=== PATIENT | male | born 1955 | race Two or more races ===

== ENCOUNTER → 2017-06-08 | Outpatient (CLI) | payer MEDICARE ==
--- NOTE | 2017-06-08 18:31 | PN ---
PROGRESS NOTE This 61-year-old male patient is coming in for an annual check regarding his obstructive sleep apnea. The patient has severe ALDA with an AHI of 45 and he was treated with a CPAP pressure of 11 cm of water. On and off he is having difficulties utilizing his full-face mask. I noted the patient has been using the CPAP 23 out of 30 days, and this is a based on 1 month's worth of compliancy data. His CPAP use for more than 4 hours is 10 out of 30, which is almost a third. His average CPAP use is around 3.4 hours per night and his AHI while on treatment is down to 3.3. His leak factor is only 2 L/minute. Note that he was having chronic back pain and he was receiving and epidural shots by Pain Management. His pain is better controlled. He wakes up in the middle of the night on and off, mainly due to dryness. I noted that his humidity level is only 2. He is using heated tubing at a temperature of 82 degrees Fahrenheit. PHYSICAL EXAMINATION: BP 114/62, pulse 63, respirations 16, temperature 97.5, saturation 98% on room air. [place] score is 10. BMI 33.2. Weight is 210. Height is 5 feet 6 inches. GENERAL APPEARANCE: Calm, comfortable. HEENT: Short neck. Crowding of posterior pharynx. LUNGS: Diminished breath sounds bilaterally; otherwise clear. Heart sounds are regular rate and rhythm. Normal S1, S2. No S3. No S4. No murmurs. ABDOMEN: Soft, nontender. No organomegaly. EXTREMITIES: No edema. No cyanosis or clubbing. IMPRESSION: 1. Severe symptomatic obstructive sleep apnea with an AHI of 45 with suboptimal compliance at a pressure of 11 cm of water. 2. Chronic back pain. 3. Hyperlipidemia. 4. Hypertension. PLAN: 1. Continue using the Simplus full-face mask, medium size. Refills were given. 2. Increase the humidity up to 4. 3. Drop the temperature of the tubing down to 72 degrees Fahrenheit. 4. Encourage weight loss. The patient has lost 4 pounds since his last visit. The patient seems to be more committed to the use of CPAP, knowing that he has been more symptomatic and sleepy while being off the treatment. 5. We will see him back in a year's time in followup, earlier if needed. His treatment has been successful. He needs to put more hours on the CPAP machine. He was educated about that. MMODL / IJN: [id number] /
== END ==
LOC: SLEEP 15:40
PROVIDERS: ATTEND Internal Medicine Critical Care Medicine
DX: G47.33 Obstructive sleep apnea (adult) (pediatric) (principal); E78.5 Hyperlipidemia, unspecified; I10 Essential (primary) hypertension; M54.9 Dorsalgia, unspecified; G89.29 Other chronic pain

== ENCOUNTER → 2018-07-26 | Outpatient (CLI) | payer MEDICARE ==
--- NOTE | 2018-07-26 19:05 | SFUN ---
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 Still on a pressure of 11 cm of water. His weight is around 210-213 and has been stable. Utilizing a Simplus full-face mask, [place] score around 6. Continues to benefit from the treatment. I checked his compliance data. The patient has been averaging around 5.1 hour of CPAP use per night. Leak is 4 L/minute. He is using a Simplus full face mask. He has hypertension which is well controlled for now. He has also hyperlipidemia treated. He is at baseline AHI was 45. REVIEW OF SYSTEMS: No angina, no palpitations. No shortness of breath. No heartburn. 12-point review of system was done. No other symptoms other than things mentioned above in history of present illness. No parasomnia, no dreaming, no sleep paralysis, no hallucinations, no cataplexy. PHYSICAL EXAMINATION: BP is 107/62, pulse is 59, respirations 16, temperature 98.1, saturation 96% on room air. Weight is 213, height is 5 feet 7 inches, [place] score 6. BMI is 33.3. GENERAL APPEARANCE: Calm, comfortable. Head is atraumatic, normocephalic. NECK: Supple. No JVD. No goiter or neck mass. Mallampati class IV. LUNGS: Clear to auscultation. HEART: Sounds regular rhythm. Normal S1, S2. No S3. No murmurs. ABDOMEN: Soft, nontender. No organomegaly. EXTREMITIES: No edema. No cyanosis or clubbing. IMPRESSION: 1. Symptomatic severe obstructive sleep apnea with an AHI of 45. 2. Hyperlipidemia. 3. Hypertension. 4. Obesity. PLAN: 1. Encourage weight loss. 2. Continue CPAP with a pressure of 11. 3. Switch this patient from a Simplus to an AirFit F20 medium-sized full-face mask. 4. Implement good sleep hygiene measures. 5. See me back in a year's time. MMODL / IJN: [id number] /
== END | disposition home or self-care (01) ==
LOC: SLEEP 13:55
PROVIDERS: ATTEND Internal Medicine Critical Care Medicine
DX: G47.33 Obstructive sleep apnea (adult) (pediatric) (principal); I10 Essential (primary) hypertension; E78.5 Hyperlipidemia, unspecified; E66.9 Obesity, unspecified; Z68.33 Body mass index [BMI] 33.0-33.9, adult; Z99.89 Dependence on other enabling machines and devices

== ENCOUNTER → 2019-07-18 | Outpatient (CLI) | payer MEDICARE ==
--- NOTE | 2019-07-18 17:57 | PN ---
PROGRESS NOTE This is a 63-year-old male patient coming in for an annual check regarding obstructive sleep apnea. The patient has severe ALDA with an AHI of 45 and currently he is on a CPAP pressure of 11 cm of water. I noticed that his compliance has gone down over these past several months, as the patient has been having issues with passing gas and flatus while on CPAP therapy. Nevertheless, I checked his compliance data, and over the past 3 months the patient has used his CPAP around 66 days out of 90 days, averaging around 4 hours per night. AHI is down to 3.9 with a leak of only 2 L/minute. His weight has been stable. He used to weigh around 213 and currently is at 214. He continues to benefit from treatment as long as he uses the CPAP. His [place] Score is 12. REVIEW OF SYSTEMS: Fourteen-point review of systems was done. Positive findings were all mentioned above in the history of present illness. Otherwise no changes. PHYSICAL EXAMINATION: VITAL SIGNS: BP is 127/75, pulse 51, respirations 16, temperature 98.3, saturation 97% on room air. [place] score is 12. BMI 33. Height is 5 feet 7 inches, weight 214. GENERAL APPEARANCE: Calm, comfortable. HEAD: Atraumatic, normocephalic. NECK: Supple. Mallampati class IV. No goiter or neck masses. LUNGS: Diminished; otherwise clear. HEART: Heart sounds are regular rate and rhythm. Normal S1, S2. No S3, S4. No murmurs. ABDOMEN: Soft, nontender. No organomegaly. EXTREMITIES: No edema. No cyanosis or clubbing. NEUROLOGIC: Alert and oriented x3. No focal neurological deficits. PSYCHIATRIC: Negative for anxiety or depression. IMPRESSION: 1. Obstructive sleep apnea, severe; apnea/hypopnea index of 45. Currently on CPAP pressure of 11. 2. Increased flatus related to CPAP therapy. 3. Obesity with a stable body weight. BMI 33. 4. Hypersomnia, improved. PLAN: 1. Drop the CPAP down to 9 cm of water. This will hopefully help with his flatus. 2. Keep the same mask interface. 3. Increase the humidity up to 4. 4. Eliminate RAMP time. 5. Monitor the AHI while on treatment and contact me back if the AHI still goes up. Otherwise, as long as the AHI remains low, below 5, the patient will be kept at a CPAP pressure of 9, and the patient will see me back in 12 months' time in followup. JIE / IJN: [id number] /
== END | disposition home or self-care (01) ==
LOC: SLEEP 13:01
PROVIDERS: ATTEND Internal Medicine Critical Care Medicine
DX: G47.33 Obstructive sleep apnea (adult) (pediatric) (principal); G47.19 Other hypersomnia; E66.9 Obesity, unspecified; Z68.33 Body mass index [BMI] 33.0-33.9, adult

== ENCOUNTER → 2020-07-02 | Outpatient (CLI) | payer MEDICARE ==
--- NOTE | 2020-07-02 16:43 | PN ---
PROGRESS NOTE This patient is 64 coming in for a followup regarding obstructive sleep apnea. He has severe ALDA with an AHI of 45, currently on CPAP pressure of 9 cm of water. The patient is doing extremely well. No complaints. No major hypersomnia or sleepiness during the day. No new onset comorbidities. He is using an Air Fit F20 medium size full-face mask. His pressure is at 9. Based on a 30-day compliance, he has been averaging around 4 hours of CPAP use per night and his AHI while on treatment is down to 4.7. His leak is in order of 0 L/minute. The patient is otherwise doing well. No other complaints otherwise for now. He is more compliant. There are certain times when he stops using his machine and he became more symptomatic and he seems to be much more committed. His weight was around 219 pounds which is probably up by around 6 pounds since his last evaluation. REVIEW OF SYSTEMS: A 14-point review of system was done and the positive findings are mentioned in history of present illness. PHYSICAL EXAMINATION: BP is 120/68, pulse 60, respirations 16, temperature 98.2, saturation 98% on room air. Height is 5, 7, weight is 219 and BMI is 34.2. GENERAL APPEARANCE: Calm, comfortable. HEAD: Atraumatic, normocephalic. NECK: Supple. No JVD. No goiter or neck masses, Mallampati class 4. LUNGS: Clear to auscultation. HEART: Heart sounds are regular rate and rhythm, normal S1, S2. No S3, S4. No murmurs. ABDOMEN: Soft, nontender, no organomegaly. EXTREMITIES: No edema, no cyanosis or clubbing. NEUROLOGIC: He is alert x3. No focal neurological deficits. PSYCHIATRIC: Negative for anxiety or depression. IMPRESSION: 1. ALDA, AHI of 45, currently on CPAP pressure of 9. Treatment is successful. 2. Hypersomnia recovered. 3. Hyperlipidemia. 4. Chronic sinus allergies. 5. Hypertension. PLAN: 1. Continue CPAP therapy at same level of pressure of 9. 2. Encourage weight loss. 3. Implement hygiene measures. 4. Improved number of hours of CPAP use per night and I would expect at least 5-6 hours per night. 5. Keep the same mask interface which is an Air Fit of 20. 6. See me back in a year's time in followup, earlier if needed. MMODL / IJN: [id number] /
== END | disposition home or self-care (01) ==
LOC: SLEEP 12:58
PROVIDERS: ATTEND Internal Medicine Critical Care Medicine
DX: G47.33 Obstructive sleep apnea (adult) (pediatric) (principal); E78.5 Hyperlipidemia, unspecified; I10 Essential (primary) hypertension; J30.9 Allergic rhinitis, unspecified; Z99.89 Dependence on other enabling machines and devices

== ENCOUNTER → 2023-07-26 | Outpatient (CLI) | payer MEDICARE ==
--- NOTE | 2023-07-26 10:54 | XR ---
EXAMINATION TYPE: XR abdomen 1V DATE OF EXAM: 07/26/2023 COMPARISON: NONE HISTORY: Pain TECHNIQUE: One view abdominal series FINDINGS: The osseous structures are intact. The bowel gas pattern is nonspecific. Surgical clips right upper quadrant. Hypertrophic changes in the acetabulum. Hypertrophic degenerative changes in the spine. IMPRESSION: 1. Nonspecific abdomen.
== END | disposition home or self-care (01) ==
LOC: RADXRYALE 09:43
PROVIDERS: ATTEND Family Medicine
DX: K59.00 Constipation, unspecified (principal); R10.84 Generalized abdominal pain
CPT/HCPCS: 74018

== ENCOUNTER 2023-07-30 10:57 | Inpatient (IN) | payer MEDICARE ==
--- NOTE | 2023-07-30 11:18 | ED ---
Fever HPI - General Source: patient, RN notes reviewed <Candace Trotter - Last Filed: 07/30/23 11:17> - History of Present Illness MD Complaint: fever -: week(s) Temperature Source: subjective, oral Associated Symptoms: chills Treatments Prior to Arrival: none <Inocencio Guaman - Last Filed: 08/02/23 21:45> - General Stated Complaint: fever Time Seen by Provider: 07/30/23 11:17 - History of Present Illness Initial Comments: Patient is 67 mL presented ER with chief complaint of a fever. Patient states he was seen for hemorrhoids on Wednesday. Patient denies any chills or night sweats. Patient states he has spiked a fever of 101 and 102. (Candace Trotter) This is a 67-year-old male to the emergency department today DF for evaluation of fever with recent treatment for hemorrhoids. Patient has severe rectal pain with fever 102 going on for a week severe rectal pain worsening. Chills fever (Inocencio Guaman) - Related Data Home Medications Medication Instructions Recorded Confirmed Fluticasone Nasal [place] [Flonase 2 spray EA NOSTRIL DAILY 06/04/16 07/30/23 Nasal [place]] Metoprolol Tartrate [Lopressor] 50 mg PO BID 06/04/16 07/30/23 Omeprazole [PriLOSEC] 40 mg PO DAILY PRN 06/04/16 07/30/23 Acetaminophen Tab [Tylenol Tab] 500 mg PO Q6H PRN 07/30/23 07/30/23 Aspirin EC [Ecotrin Low Dose] 81 mg PO DAILY 07/30/23 07/30/23 Atorvastatin [Lipitor] 20 mg PO DAILY 07/30/23 07/30/23 Celecoxib [CeleBREX] 200 mg PO BID PRN 07/30/23 07/30/23 amLODIPine [Norvasc] 5 mg PO HS 07/30/23 07/30/23 Allergies Allergy/AdvReac Type Severity Reaction Status Date / Time sulfamethoxazole Allergy Rash/Hives Verified 07/30/23 17:29 [From Sulfamethoxazole-Trimethoprim] trimethoprim Allergy Rash/Hives Verified 07/30/23 17:29 [From Sulfamethoxazole-Trimethoprim] Review of Systems ROS Other: All systems not noted in ROS Statement are negative. <Candace Trotter - Last Filed: 07/30/23 11:17> ROS Other: All systems not noted in ROS Statement are negative. <Inocencio Guaman - Last Filed: 08/02/23 21:45> ROS Statement: Those systems with pertinent positive or pertinent negative responses have been documented in the HPI. Past Medical History Past Medical History: Coronary Artery Disease (CAD), GERD/Reflux, Hyperlipidemia, Hypertension, Sleep Apnea/CPAP/BIPAP History of Any Multi-Drug Resistant Organisms: None Reported Past Surgical History: Appendectomy, Orthopedic Surgery Additional Past Surgical History / Comment(s): R & L shoulder surgery in the past. Pain injections to lower back. Past Anesthesia/Blood Transfusion Reactions: No Reported Reaction Past Psychological History: No Psychological Hx Reported Past Alcohol Use History: Occasional Past Drug Use History: None Reported - Past Family History Sister(s) Family Medical History: Cancer Additional Family Medical History / Comment(s): Thyroid Mother Family Medical History: No Reported History Father Family Medical History: Cancer Additional Family Medical History / Comment(s): Prostate <StephenscottCandace - Last Filed: 07/30/23 11:17> General Exam <Candace Trotter - Last Filed: 07/30/23 11:17> General appearance: alert, in no apparent distress, anxious Head exam: Present: atraumatic, normocephalic, normal inspection Eye exam: Present: normal appearance, PERRL, EOMI. Absent: scleral icterus, conjunctival injection, periorbital swelling ENT exam: Present: normal exam, mucous membranes moist Neck exam: Present: normal inspection. Absent: tenderness, meningismus, lymphadenopathy Respiratory exam: Present: normal lung sounds bilaterally. Absent: respiratory distress, wheezes, rales, rhonchi, stridor Cardiovascular Exam: Present: regular rate, normal rhythm, normal heart sounds. Absent: systolic murmur, diastolic murmur, rubs, gallop, clicks GI/Abdominal exam: Present: soft, normal bowel sounds. Absent: distended, tenderness, guarding, rebound, rigid Extremities exam: Present: normal inspection, full ROM, normal capillary refill. Absent: tenderness, pedal edema, joint swelling, calf tenderness Back exam: Present: normal inspection Neurological exam: Present: alert, oriented X3, CN II-XII intact Psychiatric exam: Present: normal affect, normal mood Skin exam: Present: warm, dry, intact, normal color. Absent: rash <Inocencio Guaman - Last Filed: 08/02/23 21:45> - General Exam Comments Initial Comments: Visual Physical Exam Vital signs reviewed General: Well-appearing, nontoxic, no acute distress. Head: Normocephalic, atraumatic Eyes: PERRLA, EOMI ENT: Airway patent Chest: Nonlabored breathing Skin: No visual rash, normal skin tone Neuro: Alert and oriented 3 Musculoskeletal: No gross abnormalities (Candace Trotter) Course <Inocencio Guaman - Last Filed: 08/02/23 21:45> Vital Signs 07/30/23 07/30/23 07/30/23 11:17 14:24 18:49 Temperature 100.2 F H 101.2 F H 98.7 F Pulse Rate 89 92 Respiratory 20 18 Rate Blood Pressure 134/91 102/58 O2 Sat by Pulse 99 99 Oximetry 07/30/23 19:58 Temperature Pulse Rate 81 Respiratory 16 Rate Blood Pressure 109/58 O2 Sat by Pulse 97 Oximetry - Reevaluation(s) Reevaluation #1: 07/30/23 16:18 Medical record is reviewed (Inocencio Guaman) Reevaluation #2: 07/30/23 16:18 Patient's pain is improved but still with fever and weakness (Inocencio Guaman) Reevaluation #3: 07/30/23 16:18 Patient informed results and questions answered (Inocencio Guaman) Reevaluation #4: 07/30/23 16:19 Was pt. sent in by a medical professional or institution (, PA, GUEST ASSOCIATE, urgent care, hospital, or jail...) When possible be specific @ -no Did you speak to anyone other than the patient for history (EMS, parent, family, police, friend...)? What history was obtained from this source @ -no Did you review nursing and triage notes (agree or disagree)? Why? @ -agree Are old charts reviewed (outside hosp., previous admission, EMS record, old EKG, old radiological studies, urgent care reports/EKG's, jail records)? Report findings @ -yes Differential Diagnosis (chest pain, altered mental status, abdominal pain women, abdominal pain men, vaginal bleeding, weakness, fever, dyspnea, syncope, headache, dizziness, GI bleed, back pain, seizure, CVA, palpatations, mental health, musculoskeletal)? @ -prior EKG interpreted by me (3pts min.). @ -no X-rays interpreted by me (1pt min.). @ -no CT interpreted by me (1pt min.). @ -yes computed tomography scan positive for perianal abscess 3 x 5 cm U/S interpreted by me (1pt. min.). @ -no What testing was considered but not performed or refused? (CT, X-rays, U/S, labs)? Why? @ -none What meds were considered but not given or refused? Why? @ -none Did you discuss the management of the patient with other professionals (professionals i.e. , PA, GUEST ASSOCIATE, lab, RT, psych nurse, social media sr strategy manager, machine wedger, teacher, branch officer, supportive employment case manager)? Give summary @ -no Was smoking cessation discussed for >3mins.? @ -no Was critical care preformed (if so, how long)? @ -no Were there social determinants of health that impacted care today? How? (Homelessness, low income, unemployed, alcoholism, drug addiction, transportation, low edu. Level, literacy, decrease access to med. care, [place] [facility], rehab)? @ -none Was there de-escalation of care discussed even if they declined (Discuss DNR or withdrawal of care, Hospice)? DNR status @ -no What co-morbidities impacted this encounter? (DM, HTN, Smoking, COPD, CAD, Cancer, CVA, ARF, Chemo, Hep., AIDS, mental health diagnosis, sleep apnea, morbid obesity)? @ -none Was patient admitted / discharged? Hospital course, mention meds given and route, prescriptions, significant lab abnormalities, going to OR and other pertinent info. @ - 67 male to the emergency department for evaluation of significant rectal pain with fever. Does have a significant rectal abscess and will admit for evaluation and treatment Admitted Undiagnosed new problem with uncertain prognosis? @ -no Drug Therapy requiring intensive monitoring for toxicity (Heparin, Nitro, Insu jevon, Cardizem)? @ -no Were any procedures done? @ -no Diagnosis/symptom? @ -Perianal abscess with fever Acute, or Chronic, or Acute on Chronic? @ -Acute Uncomplicated (without systemic symptoms) or Complicated (systemic symptoms)? @ -Complicated Side effects of treatment? @ -no Exacerbation, Progression, or Severe Exacerbation? @ -exacerbation Poses a threat to life or bodily function? How? (Chest pain, [place], [place], pneumonia, PE, COPD, DKA, ARF, appy, cholecystitis, CVA, Diverticulitis, Homicidal, Suicidal, threat to staff... and all critical care pts) @ -yes significant infection with sepsis (Inocencio Guaman) Reevaluation #5: 07/30/23 16:21 Differential Fever: Pneumonia, viral URI, endocarditis, myocarditis, pericarditis, otitis, sinusitis, peritonsillar Abscess, retropharyngeal Abscess, epiglottitis, peritonitis, appendicitis, Manda cystitis, diverticulitis, hepatitis, colitis, UTI, PID, TOA, pyelonephritis, prostatitis, epididymitis, meningitis, encephalitis, pulmonary embolism, CVA, thyroid storm, pancreatitis, adrenal crisis, cavernous sinus thrombosis, this is not meant to be an all-inclusive list. Differential Abdominal Pain Women: Appendicitis, Cholecystitis, diverticulosis, ischemic bowel, pancreatitis, hepatitis, UTI, gastroenteritis, AAA, incarcerated hernia, bowel obstruction, constipation, inflammatory bowel, hepatitis, peptic ulcer disease, splenic infarction, perforated viscus, vulvitis, ovarian torsion, PID, kidney stone, placenta abruption, this is not meant to be an all-inclusive list (Inocencio Guaman) - Consultations Consultation #1: Spoke with Dr. Velez will see the patient consult with sound physician (Inocencio Guaman) Medical Decision Making <Candace Trotter - Last Filed: 07/30/23 11:17> - Lab Data Result diagrams: 08/02/23 05:59 08/01/23 11:30 - Radiology Data Radiology results: report reviewed (Pelvis is positive for perianal abscess), image reviewed <Inocencio Guaman - Last Filed: 08/02/23 21:45> - Medical Decision Making I performed the quick note portion of the exam. Electronically signed by Candace Trotter PA-C (Candace Trotter) 67 male to the emergency department for evaluation of significant rectal pain with fever. Does have a significant rectal abscess and will admit for evaluation and treatment (Inocencio Guaman) - Lab Data Lab Results 07/30/23 07/30/23 07/30/23 Range/Units 11:42 11:42 11:42 WBC 8.6 (3.8-10.6) k/uL RBC 4.63 (4.30-5.90) m/uL Hgb 14.6 (13.0-17.5) gm/dL Hct 42.9 (39.0-53.0) % MCV 92.6 (80.0-100.0) fL MCH 31.6 (25.0-35.0) pg MCHC 34.1 (31.0-37.0) g/dL RDW 12.7 (11.5-15.5) % Plt Count 189 (150-450) k/uL MPV 7.2 Sodium 135 L (137-145) mmol/L Potassium 4.6 (3.5-5.1) mmol/L Chloride 96 L (98-107) mmol/L Carbon Dioxide 26 (22-30) mmol/L Anion Gap 13 mmol/L BUN 13 (9-20) mg/dL Creatinine 0.85 (0.66-1.25) mg/dL Est GFR (CKD-EPI)AfAm >90 (>60 ml/min/1.73 sqM) Est GFR (CKD-EPI)NonAf >90 (>60 ml/min/1.73 sqM) Glucose 90 (74-99) mg/dL Calcium 9.6 (8.4-10.2) mg/dL Total Bilirubin 1.2 (0.2-1.3) mg/dL AST 53 (17-59) U/L ALT 67 H (4-49) U/L Alkaline Phosphatase 88 (38-126) U/L C-Reactive Protein (<1.0) mg/dL Total Protein 7.8 (6.3-8.2) g/dL Albumin 4.6 (3.5-5.0) g/dL Influenza Type A (PCR) Not Detected (Not Detectd) Influenza Type B (PCR) Not Detected (Not Detectd) RSV (PCR) Not Detected (Not Detectd) SARS-CoV-2 (PCR) Not Detected (Not Detectd) 07/30/23 Range/Units 14:34 WBC (3.8-10.6) k/uL RBC (4.30-5.90) m/uL Hgb (13.0-17.5) gm/dL Hct (39.0-53.0) % MCV (80.0-100.0) fL MCH (25.0-35.0) pg MCHC (31.0-37.0) g/dL RDW (11.5-15.5) % Plt Count (150-450) k/uL MPV Sodium (137-145) mmol/L Potassium (3.5-5.1) mmol/L Chloride (98-107) mmol/L Carbon Dioxide (22-30) mmol/L Anion Gap mmol/L BUN (9-20) mg/dL Creatinine (0.66-1.25) mg/dL Est GFR (CKD-EPI)AfAm (>60 ml/min/1.73 sqM) Est GFR (CKD-EPI)NonAf (>60 ml/min/1.73 sqM) Glucose (74-99) mg/dL Calcium (8.4-10.2) mg/dL Total Bilirubin (0.2-1.3) mg/dL AST (17-59) U/L ALT (4-49) U/L Alkaline Phosphatase (38-126) U/L C-Reactive Protein 2.6 H (<1.0) mg/dL Total Protein (6.3-8.2) g/dL Albumin (3.5-5.0) g/dL Influenza Type A (PCR) (Not Detectd) Influenza Type B (PCR) (Not Detectd) RSV (PCR) (Not Detectd) SARS-CoV-2 (PCR) (Not Detectd) Disposition <Candace Trotter - Last Filed: 07/30/23 11:17> Is patient prescribed a controlled substance at d/c from ED?: No Time of Disposition: 16:20 <Inocencio Guaman - Last Filed: 08/02/23 21:45> Clinical Impression: Perirectal abscess, Fever, Rectal pain Disposition: ADMITTED IP TO THIS HOSP Condition: Fair
[2023-07-30 12:21] LABS: HCT 42.9 % (39.0-53.0); HGB 14.6 gm/dL (13.0-17.5); MCH 31.6 pg (25.0-35.0); MCHC 34.1 g/dL (31.0-37.0); MCV 92.6 fL (80.0-100.0); Mean Platelet Volume 7.2; Platelet Count 189 k/uL (150-450); RBC 4.63 m/uL (4.30-5.90); RDW 12.7 % (11.5-15.5); WBC 8.6 k/uL (3.8-10.6)
[2023-07-30 12:35] LABS: ALT 67 U/L (4-49); AST 53 U/L (17-59); African American GFR (CKD) >90 (>60 ml/min/1.73 sqM); Albumin 4.6 g/dL (3.5-5.0); Alkaline Phosphatase 88 U/L (38-126); Blood Urea Nitrogen 13 mg/dL (9-20); Calcium 9.6 mg/dL (8.4-10.2); Carbon Dioxide 26 mmol/L (22-30); Glucose 90 mg/dL (74-99); Non-African American GFR(CKD) >90 (>60 ml/min/1.73 sqM); Potassium 4.6 mmol/L (3.5-5.1); Sodium 135 mmol/L (137-145); Total Bilirubin 1.2 mg/dL (0.2-1.3); Total Protein 7.8 g/dL (6.3-8.2)
[2023-07-30 13:00] LABS: Anion Gap 13 mmol/L; Chloride 96 mmol/L (98-107)
[2023-07-30] MEDS ORDERED: KETOROLAC 15 MG/ML 1 ML VIAL IVP STA (13:22)
[2023-07-30] MEDS ORDERED: MORPHINE SULFATE 4 MG/ML SYRINGE IVP STA (13:22)
--- NOTE | 2023-07-30 14:36 | CT ---
EXAMINATION: CT ABDOMEN AND PELVIS WITH IV CONTRAST DATE OF EXAMINATION: 07/30/2023. COMPARISON: None available. INDICATION: Rectal pain. PROCEDURE: Axial CT of the abdomen and pelvis was performed with contrast and sagittal and coronal reformatted images were performed. CT dose lowering techniques were used, to include: automated expos ure control, adjustment for patient size, and/or use of iterative reconstruction. FINDINGS: LOWER CHEST : The visualized lung bases are clear. There are no pleural or pericardial effusions. ABDOMEN: Liver and Biliary system: Normal. Adrenal glands: Normal. Kidneys and ureters: Normal. Spleen: Normal. Pancreas: Normal. Gallbladder: Normal. Lymph nodes, Peritoneum and mesentery: There is no mesenteric or retroperitoneal lymphadenopathy. Gastrointestinal tract: There are no dilated loops of bowel or free intraperitoneal air. The appe ndix is normal. Aorta/IVC: There is mild vascular calcification throughout the abdominal aorta without evidence of aneurysmal dilation or dissection. IVC normal. Abdominal wall: Normal. PELVIS: Fluid: There is no free fluid in the pelvis. Lymph Nodes: There is no pelvic or inguinal lymphadenopathy.. Urinary bladder: Normal. BONES: There are no osseous destructive lesions.. ADDITIONAL SIGNIFICANT FINDINGS: There is a rim-enhancing fluid collection along the right perianal region extending posteriorly which likely relates to a perianal abscess measuring 3.4 x 4.4 cm in di ameter.. IMPRESSION: 1. Perianal abscess as above 2. No additional acute process seen within the abdomen or pelvis.
[2023-07-30] MEDS ORDERED: SODIUM CHLORIDE 0.9% 1,000 ML IV STA ×2 (15:03)
[2023-07-30] MEDS ORDERED: ACETAMINOPHEN IV (For NPO) 1,000 MG in EMPTY BAG 1 BAG IVPB STA (15:03)
[2023-07-30] MEDS ORDERED: AMPICILLIN-SULBACTAM 3 GM in SODIUM CHLORIDE 0.9% 100 ML IVPB STA (15:05)
[2023-07-30] MEDS ORDERED: MORPHINE SULFATE 4 MG/ML SYRINGE IV PRN (16:24)
[2023-07-30] MEDS ORDERED: NALOXONE 0.4 MG/ML 1 ML VIAL IV PRN (16:24)
[2023-07-30] MEDS ORDERED: ONDANSETRON 4 MG/2 ML VIAL IVP PRN (16:24)
--- NOTE | 2023-07-30 17:26 | P.GSCN ---
History of Present Illness Consult date: 07/30/23 History of present illness: Patient reports symptoms for 2 weeks. Reports pressure and pain with bowel movements only. Was on antibiotics bactrim. He had fevers. He is eating [facility] chicken and wonton soup. He reports feeling better. Recommend inpatient admission for failed outpatient therapy and sepsis. Recommend IV antibiotics, Sitz baths in the interim. Past Medical History Past Medical History: Coronary Artery Disease (CAD), GERD/Reflux, Hyperlipidemia, Hypertension, Sleep Apnea/CPAP/BIPAP History of Any Multi-Drug Resistant Organisms: None Reported Past Surgical History: Appendectomy, Orthopedic Surgery Additional Past Surgical History / Comment(s): R & L shoulder surgery in the past. Pain injections to lower back. Past Anesthesia/Blood Transfusion Reactions: No Reported Reaction Past Psychological History: No Psychological Hx Reported Past Alcohol Use History: Occasional Past Drug Use History: None Reported - Past Family History Sister(s) Family Medical History: Cancer Additional Family Medical History / Comment(s): Thyroid Mother Family Medical History: No Reported History Father Family Medical History: Cancer Additional Family Medical History / Comment(s): Prostate Medications and Allergies Home Medications Medication Instructions Recorded Confirmed Type Fluticasone Nasal [place] [Flonase 1 spray EA NOSTRIL DAILY 06/04/16 06/04/16 History Nasal [place]] Ibuprofen [Motrin] 800 mg PO Q8HR PRN 06/04/16 06/04/16 History Metoprolol Tartrate [Lopressor] 50 mg PO BID 06/04/16 06/04/16 History Omeprazole [PriLOSEC] 40 mg PO DAILY 06/04/16 06/04/16 History Simvastatin [Zocor] 40 mg PO HS 06/04/16 06/04/16 History Hydrocodone/Acetaminophen [[place] 1 - 2 each PO Q6HR PRN #60 tab 06/08/16 Rx 5-325] Allergies Allergy/AdvReac Type Severity Reaction Status Date / Time sulfamethoxazole Allergy Rash/Hives Verified 07/30/23 17:09 [From Sulfamethoxazole-Trimethoprim] trimethoprim Allergy Rash/Hives Verified 07/30/23 17:09 [From Sulfamethoxazole-Trimethoprim] Surgical - Exam Vital Signs Temp Pulse Resp BP Pulse Ox 100.2 F H 89 20 134/91 99 07/30/23 11:17 07/30/23 11:17 07/30/23 11:17 07/30/23 11:17 07/30/23 11:17 Results - Labs 07/30/23 11:42 07/30/23 11:42 Abnormal Lab Results - Last 24 Hours (Table) 07/30/23 07/30/23 Range/Units 11:42 14:34 Sodium 135 L (137-145) mmol/L Chloride 96 L (98-107) mmol/L ALT 67 H (4-49) U/L C-Reactive Protein 2.6 H (<1.0) mg/dL Diabetes panel 07/30/23 Range/Units 11:42 Sodium 135 L (137-145) mmol/L Potassium 4.6 (3.5-5.1) mmol/L Chloride 96 L (98-107) mmol/L Carbon Dioxide 26 (22-30) mmol/L BUN 13 (9-20) mg/dL Creatinine 0.85 (0.66-1.25) mg/dL Glucose 90 (74-99) mg/dL Calcium 9.6 (8.4-10.2) mg/dL AST 53 (17-59) U/L ALT 67 H (4-49) U/L Alkaline Phosphatase 88 (38-126) U/L Total Protein 7.8 (6.3-8.2) g/dL Albumin 4.6 (3.5-5.0) g/dL Calcium panel 07/30/23 Range/Units 11:42 Calcium 9.6 (8.4-10.2) mg/dL Albumin 4.6 (3.5-5.0) g/dL Pituitary panel 07/30/23 Range/Units 11:42 Sodium 135 L (137-145) mmol/L Potassium 4.6 (3.5-5.1) mmol/L Chloride 96 L (98-107) mmol/L Carbon Dioxide 26 (22-30) mmol/L BUN 13 (9-20) mg/dL Creatinine 0.85 (0.66-1.25) mg/dL Glucose 90 (74-99) mg/dL Calcium 9.6 (8.4-10.2) mg/dL Adrenal panel 07/30/23 Range/Units 11:42 Sodium 135 L (137-145) mmol/L Potassium 4.6 (3.5-5.1) mmol/L Chloride 96 L (98-107) mmol/L Carbon Dioxide 26 (22-30) mmol/L BUN 13 (9-20) mg/dL Creatinine 0.85 (0.66-1.25) mg/dL Glucose 90 (74-99) mg/dL Calcium 9.6 (8.4-10.2) mg/dL Total Bilirubin 1.2 (0.2-1.3) mg/dL AST 53 (17-59) U/L ALT 67 H (4-49) U/L Alkaline Phosphatase 88 (38-126) U/L Total Protein 7.8 (6.3-8.2) g/dL Albumin 4.6 (3.5-5.0) g/dL
[2023-07-30] MEDS ORDERED: NON FORMULARY DRUG (Omeprazole 40 MG Capsule.Dr) PO PRN (17:43)
--- NOTE | 2023-07-30 17:44 | P.HPIM ---
History of Present Illness H&P Date: 07/30/23 67 year old M with PMH of CAD, GERD, HTN presents to the ED for rectal pain and fever. Rectal pain ongoing for 2 weeks. Has tried conservative management which has not helped. Last night noted fevers and chills which prompted him to come to the ED. No changes in appetite. No changes in urination or bowel habits. In the ED, he underwent extensive evaluation. T-max 101.2 Fahrenheit. CBC unremarkable. CMP showed sodium of 135, chloride 96, ALT 67. CRP 2.6. Influenza, RSV, COVID-[address] AP showed perianal abscess. Patient is admitted for further management and workup. General: non toxic, no distress, appears at stated age Derm: warm, dry Head: atraumatic, normocephalic, symmetric Eyes: EOMI, no lid lag, anicteric sclera Cardiovascular: S1S2 reg, no murmur Lungs: CTA bilateral, no rhonchi, no rales , no accessory muscle use Abdominal: soft, nontender to palpation, no guarding, no appreciable organomegaly Ext: no gross muscle atrophy, no edema, no contractures Neuro: no focal neuro deficits Psych: Alert, oriented, appropriate affect Based on my assessment of this patient, this patient meets a high complexity level of care. Patient has an acute diagnosis of perianal abscess that poses a threat to life or bodily function. Perianal abscess: Unasyn 3g IV Q8H. Morphine 4 mg IV Q4H PRN for pain. Zofran 4 mg IV Q8H PRN for N/V. Protonix 40 mg IV QD. Blood cultures ordered. NS at 75 cc/hr. Dr. Bowilng recommends conservative management at this time. Fever: Due to above. CAD: ASA 81 mg PO QD. Lipitor 20 mg PO QD. GERD: Protonix 40 mg IV QD. HTN: Amlodipine 5 mg PO QD. Metoprolol 50 mg PO BID. CODE STATUS: FULL CODE DVT Prophylaxis: GI Prophylaxis: Protonix IV Designated medical POA if patient is not able to make medical decisions for themselves: I have reviewed the following hr business partner consultant notes: I have reviewed the results of the following tests: As above. I have ordered the following tests: CBC and BMP. I have discussed the care of this patient with the following independent historian: I have independently interpreted the following test below: I have discussed the management of this patient with the following physician: Discussed with ED provider and Dr. Bowling. Past Medical History Past Medical History: Coronary Artery Disease (CAD), GERD/Reflux, Hyperlipidemia, Hypertension, Sleep Apnea/CPAP/BIPAP History of Any Multi-Drug Resistant Organisms: None Reported Past Surgical History: Appendectomy, Orthopedic Surgery Additional Past Surgical History / Comment(s): R & L shoulder surgery in the past. Pain injections to lower back. Past Anesthesia/Blood Transfusion Reactions: No Reported Reaction Past Psychological History: No Psychological Hx Reported Past Alcohol Use History: Occasional Past Drug Use History: None Reported - Past Family History Sister(s) Family Medical History: Cancer Additional Family Medical History / Comment(s): Thyroid Mother Family Medical History: No Reported History Father Family Medical History: Cancer Additional Family Medical History / Comment(s): Prostate Medications and Allergies Home Medications Medication Instructions Recorded Confirmed Type Fluticasone Nasal [place] [Flonase 2 spray EA NOSTRIL DAILY 06/04/16 07/30/23 History Nasal [place]] Metoprolol Tartrate [Lopressor] 50 mg PO BID 06/04/16 07/30/23 History Omeprazole [PriLOSEC] 40 mg PO DAILY PRN 06/04/16 07/30/23 History Acetaminophen Tab [Tylenol Tab] 500 mg PO Q6H PRN 07/30/23 07/30/23 History Aspirin EC [Ecotrin Low Dose] 81 mg PO DAILY 07/30/23 07/30/23 History Atorvastatin [Lipitor] 20 mg PO DAILY 07/30/23 07/30/23 History Celecoxib [CeleBREX] 200 mg PO BID PRN 07/30/23 07/30/23 History amLODIPine [Norvasc] 5 mg PO HS 07/30/23 07/30/23 History Allergies Allergy/AdvReac Type Severity Reaction Status Date / Time sulfamethoxazole Allergy Rash/Hives Verified 07/30/23 17:29 [From Sulfamethoxazole-Trimethoprim] trimethoprim Allergy Rash/Hives Verified 07/30/23 17:29 [From Sulfamethoxazole-Trimethoprim] Physical Exam Vitals: Vital Signs Temp Pulse Resp BP Pulse Ox 07/30/23 14:24 101.2 F H 07/30/23 11:17 100.2 F H 89 20 134/91 99 Intake and Output 07/30/23 07/30/23 07/30/23 06:59 14:59 22:59 Other: Voiding Method Toilet Weight 90.718 kg Results CBC & Chem 7: 07/30/23 11:42 07/30/23 11:42 Labs: Abnormal Lab Results - Last 24 Hours (Table) 07/30/23 07/30/23 Range/Units 11:42 14:34 Sodium 135 L (137-145) mmol/L Chloride 96 L (98-107) mmol/L ALT 67 H (4-49) U/L C-Reactive Protein 2.6 H (<1.0) mg/dL
[2023-07-30] MEDS: SODIUM CHLORIDE 0.9% 1,000 ML IV SCH (18:43)
[2023-07-30] MEDS: ACETAMINOPHEN TAB 325 MG TAB PO PRN (22:57)
[2023-07-30] MEDS: METOPROLOL TARTRATE 50 MG TAB PO SCH (22:58)
[2023-07-30] MEDS: AMPICILLIN-SULBACTAM 3 GM in SODIUM CHLORIDE 0.9% 100 ML IVPB SCH (22:58)
[2023-07-30] MEDS: amLODIPine 5 MG TAB PO SCH (22:58)
[2023-07-31] MEDS: ACETAMINOPHEN TAB 325 MG TAB PO PRN ×3 (04:36→20:23)
[2023-07-31] MEDS: SODIUM CHLORIDE 0.9% 1,000 ML IV SCH ×2 (07:30→20:22)
[2023-07-31] MEDS: PANTOPRAZOLE 40 MG/10 ML VIAL IV SCH (08:12)
[2023-07-31] MEDS: AMPICILLIN-SULBACTAM 3 GM in SODIUM CHLORIDE 0.9% 100 ML IVPB SCH ×3 (08:12→20:25)
[2023-07-31] MEDS: METOPROLOL TARTRATE 50 MG TAB PO SCH ×2 (08:12→20:23)
[2023-07-31] MEDS: ASPIRIN 81 MG PO SCH (08:12)
[2023-07-31] MEDS ORDERED: ATORVASTATIN 20 MG TAB PO SCH (09:00)
[2023-07-31 09:36] LABS: Basophils # (A) 0.03 X 10*3/uL (0.00-0.10); Basophils % (A) 0.4 %; Eosinophils # (A) 0 X 10*3/uL (0.04-0.35); Eosinophils % (A) 0 %; HCT 36.8 % (39.6-50.0); HGB 12.7 g/dL (13.0-17.0); Lymphocytes # (A) 0.95 X 10*3/uL (0.90-5.00); Lymphocytes % (A) 12.9 %; MCH 31.1 pg (27.0-32.0); MCHC 34.5 g/dL (32.0-37.0); MCV 90.2 FL (80.0-97.0); Mean Platelet Volume 9.4 FL (9.5-12.2); Monocytes # (A) 0.75 X 10*3/uL (0.20-1.00); Monocytes % (A) 10.2 %; NRBC Per 100 WBC 0 X 10*3/uL (0.00-0.01); Neutrophils % (A) 76.2 %; Platelet Count 147 X 10*3/uL (140-440); RBC 4.08 X 10*6/uL (4.40-5.60); RDW 12.5 % (11.5-14.5); WBC 7.35 X 10*3/uL (4.50-10.00)
[2023-07-31 10:43] LABS: ALT 467 U/L (4-49); AST 332 U/L (17-59); African American GFR (CKD) >90 (>60 ml/min/1.73 sqM); Albumin 3.4 g/dL (3.5-5.0); Albumin/Globulin Ratio 1.3; Alkaline Phosphatase 126 U/L (38-126); Anion Gap 8 mmol/L; Blood Urea Nitrogen 10 mg/dL (9-20); Calcium 8.4 mg/dL (8.4-10.2); Carbon Dioxide 22 mmol/L (22-30); Chloride 103 mmol/L (98-107); Globulin 2.6 g/dL; Glucose 96 mg/dL (74-99); Non-African American GFR(CKD) >90 (>60 ml/min/1.73 sqM); Phosphorus 3.1 mg/dL (2.5-4.5); Potassium 3.7 mmol/L (3.5-5.1); Sodium 133 mmol/L (137-145); Total Bilirubin 0.9 mg/dL (0.2-1.3)
[2023-07-31] MEDS ORDERED: AMPICILLIN-SULBACTAM 3 GM in SODIUM CHLORIDE 0.9% 100 ML IVPB SCH (12:00)
--- NOTE | 2023-07-31 14:27 | P.PN ---
Subjective Progress Note Date: 07/31/23 67 year old M with PMH of CAD, GERD, HTN presents to the ED for rectal pain and fever. Rectal pain ongoing for 2 weeks. Has tried conservative management which has not helped. Last night noted fevers and chills which prompted him to come to the ED. No changes in appetite. No changes in urination or bowel habits. In the ED, he underwent extensive evaluation. T-max 101.2 Fahrenheit. CBC unremarkable. CMP showed sodium of 135, chloride 96, ALT 67. CRP 2.6. Influenza, RSV, COVID-[address] AP showed perianal abscess. 07/31 Patient was seen and examined. He continues to report rectal pain. No nause a or vomiting. No other complaints. Continued on Unasyn. ID consulted. CBC Hg 12.7. BMP Na 133, AST 332, ALT 467. General: non toxic, no distress, appears at stated age Derm: warm, dry Head: atraumatic, normocephalic, symmetric Eyes: EOMI, no lid lag, anicteric sclera Cardiovascular: S1S2 reg, no murmur Lungs: CTA bilateral, no rhonchi, no rales , no accessory muscle use Abdominal: soft, nontender to palpation, no guarding, no appreciable organomegaly Ext: no gross muscle atrophy, no edema, no contractures Neuro: no focal neuro deficits Psych: Alert, oriented, appropriate affect Based on my assessment of this patient, this patient meets a moderate complexity level of care. Patient has an acute diagnosis of perianal abscess that poses a threat to life or bodily function. Perianal abscess: Unasyn 3g IV Q8H. Morphine 4 mg IV Q4H PRN for pain. Zofran 4 mg IV Q8H PRN for N/V. Protonix 40 mg IV QD. Blood cultures ordered. NS at 75 cc/hr. Dr. Bowling recommends conservative management at this time. ID consulted. Fever: Due to above. Transaminitis: Stop Lipitor. Trend. CAD: ASA 81 mg PO QD. GERD: Protonix 40 mg IV QD. HTN: Amlodipine 5 mg PO QD. Metoprolol 50 mg PO BID. CODE STATUS: FULL CODE DVT Prophylaxis: GI Prophylaxis: Protonix IV Designated medical POA if patient is not able to make medical decisions for themselves: I have reviewed the following hematology oncology consultant notes: Surgery note. I have reviewed the results of the following tests: CBC, CMP I have ordered the following tests: CMP. I have discussed the care of this patient with the following independent historian: I have independently interpreted the following test below: I have discussed the management of this patient with the following physician: Objective - Vital Signs Vital signs: Vital Signs Temp 100.5 F H 07/31/23 12:53 Pulse 80 07/31/23 12:53 Resp 20 07/31/23 12:53 BP 125/73 07/31/23 12:53 Pulse Ox 95 07/31/23 12:53 FiO2 Intake & Output 07/30/23 07/31/23 07/31/23 18:59 06:59 18:59 Weight 90.718 kg 90.718 kg Other: Voiding Method Toilet # Voids 3 - Labs CBC & Chem 7: 07/31/23 06:59 07/31/23 06:59 Labs: Abnormal Lab Results - Last 24 Hours (Table) 07/30/23 07/31/23 07/31/23 Range/Units 14:34 06:59 06:59 RBC 4.08 L (4.40-5.60) X 10*6/uL Hgb 12.7 L (13.0-17.0) g/dL Hct 36.8 L (39.6-50.0) % MPV 9.4 L (9.5-12.2) FL Eosinophils # 0 L (0.04-0.35) X 10*3/uL Sodium 133 L (137-145) mmol/L AST 332 H (17-59) U/L ALT 467 H (4-49) U/L C-Reactive Protein 2.6 H (<1.0) mg/dL Total Protein 6.0 L (6.3-8.2) g/dL Albumin 3.4 L (3.5-5.0) g/dL
--- NOTE | 2023-07-31 17:29 | P.PN ---
Subjective Progress Note Date: 07/31/23 Principal diagnosis: Perianal pain, fever suspected perianal abscess Patient has had approximately 2 weeks of perianal pain, recently has noted fever patient seen recently in the emergency department where CAT scan suggest perianal abscess. Patient is being treated with IV antibiotics, may need surgical I&D's admission Objective - Vital Signs Vital signs: Vital Signs Temp 100.5 F H 07/31/23 12:53 Pulse 80 07/31/23 12:53 Resp 20 07/31/23 12:53 BP 125/73 07/31/23 12:53 Pulse Ox 95 07/31/23 12:53 FiO2 Intake & Output 07/30/23 07/31/23 07/31/23 18:59 06:59 18:59 Weight 90.718 kg 90.718 kg Other: Voiding Method Toilet # Voids 3 - Constitutional General appearance: Present: no acute distress - EENT Eyes: Present: PERRLA - Respiratory Respiratory: bilateral: CTA - Cardiovascular Rhythm: regular - Gastrointestinal Gastrointestinal Comment(s): Exam of the perianal area reveals no definite spot of pointing, erythema is tender greatest in the right posterior area. General gastrointestinal: Present: normal bowel sounds, soft - Neurologic Neurologic Comment(s): Awake, alert and oriented 3, appropriate affect - Labs CBC & Chem 7: 07/31/23 06:59 07/31/23 06:59 Labs: Abnormal Lab Results - Last 24 Hours (Table) 07/31/23 07/31/23 Range/Units 06:59 06:59 RBC 4.08 L (4.40-5.60) X 10*6/uL Hgb 12.7 L (13.0-17.0) g/dL Hct 36.8 L (39.6-50.0) % MPV 9.4 L (9.5-12.2) FL Eosinophils # 0 L (0.04-0.35) X 10*3/uL Sodium 133 L (137-145) mmol/L AST 332 H (17-59) U/L ALT 467 H (4-49) U/L Total Protein 6.0 L (6.3-8.2) g/dL Albumin 3.4 L (3.5-5.0) g/dL Assessment and Plan Assessment: 67-year-old male with fevers, perianal pain, suspected perianal abscess Patient currently being treated with IV antibiotics If clinical condition fails to significantly improve, may benefit from I&D in the operating room We'll keep nothing by mouth after midnight Dr. Rosie lennon to check in a.m. Time with Patient: Less than 30
[2023-07-31] MEDS: amLODIPine 5 MG TAB PO SCH (20:23)
--- NOTE | 2023-07-31 21:58 | P.CONS ---
History of Present Illness - Reason for Consult Consult date: 07/31/23 perianal abscess Requesting physician: Jana Gutiérrez - Chief Complaint Gluteal/deep pelvic pain x 1 week - History of Present Illness Patient is a 67-year-old male with a past medical history significant for coronary disease hypertension hyperlipidemia sleep apnea reflux patient presenting to the hospital for evaluation of fever patient mention he recently started having a problem with very rectal pain after he did have a hard bowel movement with the patient tried to push it out subsequently noticed to have increasing pain and discomfort in the perianal area for the patient has been evaluated by his primary care physician and has been treated for hemorrhoids with a local cream however the patient mention increasing pain to the perirectal area describing it to be sharp with moderate intensity without induration and no drainage and also having a fever with rigors and chills with the symptoms the patient presented to hospital on arrival to the ER patient did have a fever of 101.2 degrees Fahrenheit patient was not significantly tachycardic hypotensive or hypoxic White count was 8.6 creatinine 0.85 liver cells mildly elevated patient did have a CT of abdominal pelvis with a rim-enhancing fluid collection along the right perianal region measuring 3.4X 4.4 cm patient has been evaluated by general surgery recommending medical treatment started on Unasyn infectious disease was consulted for further management of antibiotic therapy Review of Systems Positive point and negatives has been mentioned in the HPI, complete review of systems was performed and all other systems are negative Past Medical History Past Medical History: Coronary Artery Disease (CAD), GERD/Reflux, H yperlipidemia, Hypertension, Sleep Apnea/CPAP/BIPAP History of Any Multi-Drug Resistant Organisms: None Reported Past Surgical History: Appendectomy, Orthopedic Surgery Additional Past Surgical History / Comment(s): R & L shoulder surgery in the past. Pain injections to lower back. Past Anesthesia/Blood Transfusion Reactions: No Reported Reaction Past Psychological History: No Psychological Hx Reported Smoking Status: Never smoker Past Alcohol Use History: Occasional Past Drug Use History: None Reported - Past Family History Sister(s) Family Medical History: Cancer Additional Family Medical History / Comment(s): Thyroid Mother Family Medical History: No Reported History Father Family Medical History: Cancer Additional Family Medical History / Comment(s): Prostate Medications and Allergies Home Medications Medication Instructions Recorded Confirmed Type Fluticasone Nasal [place] [Flonase 2 spray EA NOSTRIL DAILY 06/04/16 07/30/23 History Nasal [place]] Metoprolol Tartrate [Lopressor] 50 mg PO BID 06/04/16 07/30/23 History Omeprazole [PriLOSEC] 40 mg PO DAILY PRN 06/04/16 07/30/23 History Acetaminophen Tab [Tylenol Tab] 500 mg PO Q6H PRN 07/30/23 07/30/23 History Aspirin EC [Ecotrin Low Dose] 81 mg PO DAILY 07/30/23 07/30/23 History Atorvastatin [Lipitor] 20 mg PO DAILY 07/30/23 07/30/23 History Celecoxib [CeleBREX] 200 mg PO BID PRN 07/30/23 07/30/23 History amLODIPine [Norvasc] 5 mg PO HS 07/30/23 07/30/23 History Allergies Allergy/AdvReac Type Severity Reaction Status Date / Time sulfamethoxazole Allergy Rash/Hives Verified 07/30/23 17:29 [From Sulfamethoxazole-Trimethoprim] trimethoprim Allergy Rash/Hives Verified 07/30/23 17:29 [From Sulfamethoxazole-Trimethoprim] Physical Exam Vitals: Vital Signs Temp Pulse Pulse Resp BP BP Pulse Ox 07/31/23 07:34 100.0 F H 73 20 115/72 98 07/31/23 04:39 101.6 F H 07/31/23 01:59 100 F H 84 16 126/66 97 07/31/23 00:00 100.2 F H 07/30/23 22:39 102.3 F H 99 17 153/90 98 07/30/23 19:58 81 16 109/58 97 07/30/23 18:49 98.7 F 92 18 102/58 99 07/30/23 14:24 101.2 F H Intake and Output 07/30/23 07/31/23 07/31/23 22:59 06:59 14:59 Other: # Voids 3 Weight 90.718 kg GENERAL DESCRIPTION: Elderly male lying in bed, no distress. No tachypnea or accessory muscle of respiration use. HEENT: Shows Pallor , no scleral icterus. Oral mucous membrane is dry. No phar yngeal erythema or thrush NECK: Trachea central, no thyromegaly. LUNGS: Unlabored breathing. Clear to auscultation anteriorly. No wheeze or crackle. HEART: S1, S2, regular rate and rhythm. No loud murmur ABDOMEN: Soft, no tenderness , EXTREMITIES: No edema of feet. SKIN: No rash, no masses palpable. NEUROLOGICAL: The patient is awake, alert, oriented x3, mood and affect normal. Results CBC & Chem 7: 07/31/23 06:59 12 06:59 Labs: Abnormal Lab Results - Last 24 Hours (Table) 07/30/23 07/30/23 07/31/23 Range/Units 11:42 14:34 06:59 RBC 4.08 L (4.40-5.60) X 10*6/uL Hgb 12.7 L (13.0-17.0) g/dL Hct 36.8 L (39.6-50.0) % MPV 9.4 L (9.5-12.2) FL Eosinophils # 0 L (0.04-0.35) X 10*3/uL Sodium 135 L (137-145) mmol/L Chloride 96 L (98-107) mmol/L AST (17-59) U/L ALT 67 H (4-49) U/L C-Reactive Protein 2.6 H (<1.0) mg/dL Total Protein (6.3-8.2) g/dL Albumin (3.5-5.0) g/dL 07/31/23 Range/Units 06:59 RBC (4.40-5.60) X 10*6/uL Hgb (13.0-17.0) g/dL Hct (39.6-50.0) % MPV (9.5-12.2) FL Eosinophils # (0.04-0.35) X 10*3/uL Sodium 133 L (137-145) mmol/L Chloride (98-107) mmol/L AST 332 H (17-59) U/L ALT 467 H (4-49) U/L C-Reactive Protein (<1.0) mg/dL Total Protein 6.0 L (6.3-8.2) g/dL Albumin 3.4 L (3.5-5.0) g/dL Assessment and Plan (1) Perirectal abscess Current Visit: Yes Status: Acute Code(s): K61.1 - RECTAL ABSCESS SNOMED Code(s): 78936416 Plan: 1patient presented to hospital with fever in this patient who did have evidence of perianal abscess we will likely need to cover for the enteric gram-negative both aerobic and anaerobes 2-patient benefit from surgical drainage of this abscess and fluid should be sent for cultures 3-Unasyn dose has been adjusted to 3 g every 6 hours as a bridge to abnormal kidney function 4-we will repeat his inflammatory markers and CBC with a.m. lab We will follow on clinical condition and cultures to further adjust medication if needed Thank you for this consultation we will follow the patient along with you Dictation was produced using [employer] dictation software. please excuse any grammatical, word or spelling errors.
[2023-08-01] MEDS: ACETAMINOPHEN TAB 325 MG TAB PO PRN ×2 (02:09→08:04)
[2023-08-01] MEDS: AMPICILLIN-SULBACTAM 3 GM in SODIUM CHLORIDE 0.9% 100 ML IVPB SCH ×4 (02:09→20:50)
[2023-08-01] MEDS: METOPROLOL TARTRATE 50 MG TAB PO SCH ×2 (08:04→20:50)
[2023-08-01] MEDS: ASPIRIN 81 MG PO SCH (08:04)
[2023-08-01] MEDS: PANTOPRAZOLE 40 MG/10 ML VIAL IV SCH (08:04)
[2023-08-01] MEDS: SODIUM CHLORIDE 0.9% 1,000 ML IV SCH ×2 (08:04→22:51)
[2023-08-01 12:16] LABS: ALT 273 U/L (4-49); AST 91 U/L (17-59); African American GFR (CKD) >90 (>60 ml/min/1.73 sqM); Albumin 3.6 g/dL (3.5-5.0); Albumin/Globulin Ratio 1.3; Alkaline Phosphatase 101 U/L (38-126); Anion Gap 8 mmol/L; Blood Urea Nitrogen 10 mg/dL (9-20); Calcium 8.8 mg/dL (8.4-10.2); Carbon Dioxide 23 mmol/L (22-30); Chloride 104 mmol/L (98-107); Globulin 2.7 g/dL; Glucose 97 mg/dL (74-99); Non-African American GFR(CKD) >90 (>60 ml/min/1.73 sqM); Potassium 4.7 mmol/L (3.5-5.1); Sodium 135 mmol/L (137-145); Total Bilirubin 0.7 mg/dL (0.2-1.3); Total Protein 6.3 g/dL (6.3-8.2)
--- NOTE | 2023-08-01 13:24 | P.PN ---
Subjective Progress Note Date: 08/01/23 CT pelvis ordered to check progression or improvement of perirectal abscess. Patient continues to have fevers and has moderate rectal pain increased since admission. Recommend perirectal drainage with exam under anesthesia possible transanal drainage. Benefits and risk reviewed. Objective - Vital Signs Vital signs: Vital Signs Temp 99.6 F 08/01/23 08:48 Pulse 74 08/01/23 08:48 Resp 20 08/01/23 08:48 BP 118/72 08/01/23 08:48 Pulse Ox 96 08/01/23 08:48 FiO2 Intake & Output 07/31/23 08/01/23 08/01/23 18:59 06:59 18:59 Other: # Voids 3 2 - Labs CBC & Chem 7: 07/31/23 06:59 08/01/23 11:30 Labs: Abnormal Lab Results - Last 24 Hours (Table) 08/01/23 Range/Units 11:30 Sodium 135 L (137-145) mmol/L AST 91 H (17-59) U/L ALT 273 H (4-49) U/L Microbiology - Last 24 Hours (Table) 07/30/23 17:00 Blood Culture - Preliminary Blood 07/30/23 16:55 Blood Culture - Preliminary Blood
--- NOTE | 2023-08-01 13:41 | P.PN ---
Subjective Progress Note Date: 08/01/23 67 year old M with PMH of CAD, GERD, HTN presents to the ED for rectal pain and fever. Rectal pain ongoing for 2 weeks. Has tried conservative management which has not helped. Last night noted fevers and chills which prompted him to come to the ED. No changes in appetite. No changes in urination or bowel habits. In the ED, he underwent extensive evaluation. T-max 101.2 Fahrenheit. CBC unremarkable. CMP showed sodium of 135, chloride 96, ALT 67. CRP 2.6. Influenza, RSV, COVID-[address] AP showed perianal abscess. 07/31 Patient was seen and examined. He continues to report rectal pain. No nause a or vomiting. No other complaints. Continued on Unasyn. ID consulted. CBC Hg 12.7. BMP Na 133, AST 332, ALT 467. 08/01 Patient was seen and examined. Tmax 101.5F over the past 24H. ID recommends I&D. Surgery planning for OR today. CMP shows Na 135, AST 91, ALT 273. General: non toxic, no distress, appears at stated age Derm: warm, dry Head: atraumatic, normocephalic, symmetric Eyes: EOMI, no lid lag, anicteric sclera Cardiovascular: S1S2 reg, no murmur Lungs: CTA bilateral, no rhonchi, no rales , no accessory muscle use Abdominal: soft, nontender to palpation, no guarding, no appreciable or ganomegaly Ext: no gross muscle atrophy, no edema, no contractures Neuro: no focal neuro deficits Psych: Alert, oriented, appropriate affect Based on my assessment of this patient, this patient meets a moderate complexity level of care. Patient has an acute diagnosis of perianal abscess that poses a threat to life or bodily function. Perianal abscess: Unasyn 3g IV Q8H. Morphine 4 mg IV Q4H PRN for pain. Zofran 4 mg IV Q8H PRN for N/V. Protonix 40 mg IV QD. Blood cultures ordered. NS at 75 cc/hr. Plans for I&D today. ID and Surgery on board. Fever: Due to above. Transaminitis: Likely related to Unasyn. Stop Lipitor. Unasyn adjusted from Q6 to Q8H. Trend. CAD: ASA 81 mg PO QD. GERD: Protonix 40 mg IV QD. HTN: Amlodipine 5 mg PO QD. Metoprolol 50 mg PO BID. CODE STATUS: FULL CODE DVT Prophylaxis: GI Prophylaxis: Protonix IV Designated medical POA if patient is not able to make medical decisions for themselves: I have reviewed the following operations consultant notes: Surgery, ID note. I have reviewed the results of the following tests: CMP I have ordered the following tests: I have discussed the care of this patient with the following independent historian: I have independently interpreted the following test below: I have discussed the management of this patient with the following physician: Objective - Vital Signs Vital signs: Vital Signs Temp 99.6 F 08/01/23 08:48 Pulse 74 08/01/23 08:48 Resp 20 08/01/23 08:48 BP 118/72 08/01/23 08:48 Pulse Ox 96 08/01/23 08:48 FiO2 Intake & Output 07/31/23 08/01/23 08/01/23 18:59 06:59 18:59 Other: # Voids 3 2 - Labs CBC & Chem 7: 07/31/23 06:59 08/01/23 11:30 Labs: Abnormal Lab Results - Last 24 Hours (Table) 07/31/23 07/31/23 Range/Units 06:59 06:59 RBC 4.08 L (4.40-5.60) X 10*6/uL Hgb 12.7 L (13.0-17.0) g/dL Hct 36.8 L (39.6-50.0) % MPV 9.4 L (9.5-12.2) FL Eosinophils # 0 L (0.04-0.35) X 10*3/uL Sodium 133 L (137-145) mmol/L AST 332 H (17-59) U/L ALT 467 H (4-49) U/L Total Protein 6.0 L (6.3-8.2) g/dL Albumin 3.4 L (3.5-5.0) g/dL Microbiology - Last 24 Hours (Table) 07/30/23 17:00 Blood Culture - Preliminary Blood 07/30/23 16:55 Blood Culture - Preliminary Blood
--- NOTE | 2023-08-01 14:04 | CT ---
EXAMINATION TYPE: CT pelvis w con DATE OF EXAM: 08/01/2023 COMPARISON: INDICATION: Supralevator rectal abscess DLP: 1188.5 mGycm, Automated exposure control for dose reduction was used. CONTRAST: 100 mL of Isovue 300. Study performed without Oral Contrast TECHNIQUE: Axial images were obtained from above the iliac crests to the pubic rami in the axial plan e at 5 mm thick sections. Reconstructed images are reviewed on the computer in the coronal plane. FINDINGS: CT PELVIS: Urinary bladder appears unremarkable. Prostate is prominent. Scattered diverticuli within the sigmoid colon. No free fluid is within the abdomen. The inferior por tions of the kidneys liver and spleen within the [id number] are clear IMPRESSION: 1. Sigmoid diverticulosis without acute diverticulitis.
[2023-08-01] MEDS ORDERED: IV FLUID CONTINUATION 250 ML IV ONE (14:58)
--- NOTE | 2023-08-01 15:00 | P.PN ---
Subjective Progress Note Date: 08/01/23 Principal diagnosis: Reason for follow-up is perirectal abscess Patient is a 67-year-old male with a past medical history significant for coronary disease hypertension hyperlipidemia sleep apnea reflux patient presenting to the hospital for evaluation of fever and perirectal pain, patient did have CT of abdominal pelvis with evidence of remaining enhancing collection in the right perianal Region 3.4 X4.4 centimeter On today's evaluation that is 08/01/2023 patient did have improvement in the fever pattern and is afebrile this afternoon so complaining of pain to the perirectal area no worsening though denies any chest pain shortness of breath or cough no abdominal pain no nausea no vomiting. White count of 7.35 as of yesterday, creatinine 0.67 Objective - Vital Signs Vital signs: Vital Signs Temp 99.6 F 08/01/23 08:48 Pulse 74 08/01/23 08:48 Resp 20 08/01/23 08:48 BP 118/72 08/01/23 08:48 Pulse Ox 96 08/01/23 08:48 FiO2 Intake & Output 07/31/23 08/01/23 08/01/23 18:59 06:59 18:59 Other: # Voids 3 2 - Exam GENERAL DESCRIPTION: An elderly male lying in bed in no distress RESPIRATORY SYSTEM: Unlabored breathing , clear to auscultation anteriorly HEART: S1 S2 regular rate and rhythm , ABDOMEN: Soft , no tenderness EXTREMITIES: No edema feet - Labs CBC & Chem 7: 07/31/23 06:59 08/01/23 11:30 Labs: Microbiology - Last 24 Hours (Table) 07/30/23 17:00 Blood Culture - Preliminary Blood 07/30/23 16:55 Blood Culture - Preliminary Blood Assessment and Plan (1) Perirectal abscess Current Visit: Yes Status: Acute Code(s): K61.1 - RECTAL ABSCESS SNOMED Code(s): 33395622 Plan: 1patient presented to hospital with fever in this patient who did have evidence of perianal abscess we will likely need to cover for the enteric gram-negative both aerobic and anaerobes 2-patient benefit from surgical drainage of this abscess and fluid should be sent for cultures, patient is currently waiting for a repeat CT abdominal pelvis this afternoon 3-patient to continue with Unasyn 3 g every 6 hours and monitor clinical course closely Dictation was produced using [employer] dictation software. please excuse any grammatical, word or spelling errors. Time with Patient: Less than 30
[2023-08-01] MEDS ORDERED: SUCCINYLCHOLINE CHLORIDE 200 MG/10 ML VIAL IV ONE (15:05)
[2023-08-01] MEDS ORDERED: PHENYLEPHRINE-0.9% NACL SYG 1,000 MCG/10 ML SYRINGE ONE (15:05)
[2023-08-01] MEDS ORDERED: ePHEDrine 50 MG/ML 1 ML VIAL ONE (15:05)
[2023-08-01] MEDS ORDERED: SODIUM CHLORIDE 0.9% 100 ML BAG ONE (15:05)
[2023-08-01] MEDS ORDERED: ONDANSETRON 4 MG/2 ML VIAL ONE (15:05)
[2023-08-01] MEDS ORDERED: ceFAZolin 1,000 MG VIAL ONE (15:05)
[2023-08-01] MEDS ORDERED: HEPARIN SODIUM,PORCINE 5,000 UNIT/ML 1 ML VIAL ONE (15:05)
[2023-08-01] MEDS ORDERED: DEXAMETHASONE SOD PHOSPHATE 4 MG/ML 1 ML VIAL ONE (15:05)
[2023-08-01] MEDS ORDERED: KETOROLAC 15 MG/ML 1 ML VIAL ONE (15:05)
[2023-08-01] MEDS ORDERED: fentaNYL (PF) 50 MCG/ML 2 ML AMP ONE (15:05)
[2023-08-01] MEDS ORDERED: LIDOCAINE 1% INJ 10MG/ML (20 ML MDV) ONE (15:05)
[2023-08-01] MEDS ORDERED: PROPOFOL 10 MG/ML 20 ML VIAL IV ONE (15:05)
[2023-08-01] MEDS ORDERED: MIDAZOLAM 2 MG/2 ML VIAL ONE (15:05)
[2023-08-01] MEDS ORDERED: SODIUM CHLORIDE 0.9% 50 ML with ceFAZolin 2,000 MG IV ONE ×2 (15:10)
[2023-08-01] MEDS ORDERED: LIDOCAINE 1%-EPI 1:100,000 50 ML VIAL SUBMUCOSAL ONE ×2 (15:36)
[2023-08-01] MEDS ORDERED: HYDROcodone/APAP 5-325MG 1 EACH TAB PO PRN (16:12)
--- NOTE | 2023-08-01 16:26 | P.OP ---
Date of Procedure: 08/01/23 Description of Procedure: SURGEON: [facility] ARCHITECT: NONE. PREOPERATIVE DIAGNOSES: 1. Supralevator perirectal abscess with sepsis 2. Obesity due to excess calories, BMI 31.3 3. Hypertensive heart disease 4. Failed outpatient antibiotic treatment 5. Gastroesophageal reflux disease 6. Hyperlipidemia POSTOPERATIVE DIAGNOSES: 1. Supralevator perirectal abscess with sepsis 2. Obesity due to excess calories, BMI 31.3 3. Hypertensive heart disease 4. Failed outpatient antibiotic treatment 5. Gastroesophageal reflux disease 6. Hyperlipidemia. OPERATION: 1. Transanal drainage of perirectal abscess, 3 x 5 cm 2. Needle decompression with 18-gauge needle perirectal abscess 3. Exam under anesthesia unit anoscope ANESTHESIA: Gen., local anesthetic ESTIMATED BLOOD LOSS: 5 mL. PATHOLOGY: 1. Aerobic and anaerobic cultures supralevator abscess FINDINGS: 1. Deep supralevator abscess with cultures obtained via 18-gauge needle decompression 2. Depth of supralevator abscess 7 cm from dentate line at 12 to 3 o'clock position using prone jackknife position 3. Internal hemorrhoids grade 2 by anoscope 4. Prostate unremarkable INDICATIONS: The patient is a 69-year-old male who presents with sepsis including feel outpatient management for perirectal abscess. CT pelvis demonstrated supralevator abscess. Patient continued to have fevers despite IV antibiotics. Benefits and risks of the procedure, including bleeding, infection, incontinence, recurrent pain and recurrence of the hemorrhoids were discussed in detail. Informed consent was obtained. DESCRIPTION: Patient was brought to the operating room. After general induction, the patient was placed in prone jackknife position. Next, the perineum and buttocks was spread apart using Mastisol. The perineum was then prepped and draped in standard sterile fashion using Betadine. Preoperative medication was confirmed with Ancef IV antibiotics and heparin. Prior to exam under anesthesia, a timeout protocol was confirmed with surgical team. Initially 2 fingers was easily inserted for dilation of the anus. A perineal block using local anesthetic was placed. Grade 2 hemorrhoids along all 3 quadrants were identified. Next, using a Marcelina Dao anoscope, a mass was palpated at 12:00 to 3:00 from the dentate line in prone jackknife position. The prostate was unremarkable. An 18-gauge needle decompression was performed confirming location. Aerobic and anaerobic cultures were obtained and sent. Transanal incision using #11 blade was used to extend needle decompression site and hemostat. Along the skin, 18-gauge needle was used to access the abscess site. Due to the depth, 7 cm from the dentate line abscess, no counterincision was made to allow for external drainage. The skin was cleansed using dilute hydrogen peroxide. The rectum was irrigated using 40 mL of similar solution. At the end of the procedure, needle, sponge, and counts had been verified correct by the ophthalmic surgical assistant. The patient then had tolerated the procedure well. The patient was taken to the postanesthesia care in stable condition.
[2023-08-01] MEDS ORDERED: HYDROmorphone 0.5 MG/0.5 ML SYRINGE IVP ONE ×2 (16:39→16:49)
[2023-08-01] MEDS ORDERED: ACETAMINOPHEN TAB 325 MG TAB PO SCH (18:00)
[2023-08-01] MEDS: ACETAMINOPHEN TAB 500 MG TAB PO SCH ×2 (18:11→23:21)
[2023-08-01] MEDS: KETOROLAC 15 MG/ML 1 ML VIAL IVP SCH ×2 (18:11→23:20)
[2023-08-01] MEDS: amLODIPine 5 MG TAB PO SCH (20:50)
[2023-08-02] MEDS: AMPICILLIN-SULBACTAM 3 GM in SODIUM CHLORIDE 0.9% 100 ML IVPB SCH ×4 (01:14→19:49)
[2023-08-02] MEDS: KETOROLAC 15 MG/ML 1 ML VIAL IVP SCH ×4 (06:16→23:18)
[2023-08-02] MEDS: ACETAMINOPHEN TAB 500 MG TAB PO SCH ×4 (06:17→23:16)
[2023-08-02] MEDS: METOPROLOL TARTRATE 50 MG TAB PO SCH ×2 (08:04→20:40)
[2023-08-02] MEDS: ENOXAPARIN 40 MG/0.4 ML SYRINGE SQ SCH (08:04)
[2023-08-02] MEDS: ASPIRIN 81 MG PO SCH (08:04)
[2023-08-02] MEDS: PANTOPRAZOLE 40 MG/10 ML VIAL IV SCH (08:27)
[2023-08-02 08:39] LABS: Basophils # (A) 0.01 X 10*3/uL (0.00-0.10); Basophils % (A) 0.1 %; Eosinophils # (A) 0 X 10*3/uL (0.04-0.35); Eosinophils % (A) 0 %; HCT 36.1 % (39.6-50.0); HGB 12.4 g/dL (13.0-17.0); Lymphocytes # (A) 0.69 X 10*3/uL (0.90-5.00); Lymphocytes % (A) 7.7 %; MCH 31.5 pg (27.0-32.0); MCHC 34.3 g/dL (32.0-37.0); MCV 91.6 FL (80.0-97.0); Mean Platelet Volume 9.8 FL (9.5-12.2); Monocytes # (A) 0.47 X 10*3/uL (0.20-1.00); Monocytes % (A) 5.2 %; NRBC Per 100 WBC 0 X 10*3/uL (0.00-0.01); Neutrophils # (A) 7.78 X 10*3/uL (1.80-7.70); Neutrophils % (A) 86.6 %; Platelet Count 158 X 10*3/uL (140-440); RBC 3.94 X 10*6/uL (4.40-5.60); RDW 12.5 % (11.5-14.5); WBC 8.99 X 10*3/uL (4.50-10.00)
[2023-08-02] MEDS: SODIUM CHLORIDE 0.9% 1,000 ML IV SCH (12:14)
--- NOTE | 2023-08-02 13:17 | CDI ---
Documentation Clarification Form Date: 08/02/2023 01:08:57 PM From: Leonor Wilder RN, CCDS Admit Date: 07/30/2023 04:24:00 PM Patient Name: Kaylyn Cortez Visit Number: [id number] Discharge Date: ATTENTION: The Clinical Documentation Specialists (CDI) and [facility] Coding Staff appreciate your assistance in clarifying documentation. Please respond to the clarification below the line at the bottom and electronically sign. The CDI & [facility] Coding staff will review the response and follow-up if needed. Please note: Queries are made part of the Legal Health Record. If you have any questions, please contact the author of this message via ITS. Dr. Shaw Kenney The patient has been documented in the surgical consult and subsequent progress notes on 07/30/23. Based on this information and the findings below, is there an additional diagnosis that is clinically appropriate for this patient? History/Risk Factors: Coronary Artery Disease, GERD/Reflux, Hyperlipidemia, Hypertension, Sleep Apnea Clinical Indicators: 67-year-old male present with complaint of a fever severe, rectal pain seen for hemorrhoids on Wednesday. Patient states he has spiked a fever of 101 and 102. 07/30 WBC 8.6, C-Reactive Protein 2.6 07/30 Blood cultures: Pending: No growth after 48 hours. 07/30 Vital signs: 134/91 89 20 100.2, 101.2, 07/30 (22:39 153/90 99 17 102.3 98 % Ra 07/30 Surgical Consult: Was on antibiotics Bactrim. He had fevers. Recommend inpatient admission for failed outpatient therapy and sepsis. 08/01 Operative note: Supralevator perirectal abscess with sepsis 07/31 ID: presented to hospital with fever in this patient who did have evidence of perianal abscess we will likely need to cover for the enteric gram-negative both aerobic and anaerobes. Treatment: .9NS 1000 @ Bolus 12.1 then @75 ML HR Unasyn 3GM IVPB Q6HRS 07/30-08/02 08/01 Trans anal drainage of perirectal abscess Is there an additional diagnosis that is clinically appropriate for this patient? [ ] Sepsis, present on admission [ x ] Sepsis ruled out [ ] Other, please specify [ ] Unable to determine SIRS Criteria: 2 or more of the following may indicate SIRS Temperature < 96.8F (36C) or > 101.0F (38.3C) Heart Rate > 90 bpm Respiratory Rate > 20 breaths/min or PaCO2 < 32 mmHg White Blood Cell Count > 12,000 or < 4,000 cells/mm3 or > 10% bands (Template Last Reviewed: August 2022) MTDD
--- NOTE | 2023-08-02 14:01 | P.PN ---
Subjective Progress Note Date: 08/02/23 CHIEF COMPLAINT: Perirectal abscess HISTORY OF PRESENT ILLNESS: Patient postop day #1 status post transanal drainage of perirectal abscess. Patient reports improvement in his pain. He is tolerating diet. Patient does report having bowel movements with small amount of bleeding noted. Afebrile. WBC is 8.99 Hgb is 12.4 platelets 158 PHYSICAL EXAM: VITAL SIGNS: Reviewed GENERAL: Well-developed in no acute distress. HEENT: No sclera icterus. Extraocular movements grossly intact. Moist buccal mucosa. Head is atraumatic, normocephalic. Hears conversational speech. No nasal drainage. NECK: Supple without lymphadenopathy. CHEST: Non-labored respirations and equal bilateral excursions. CARDIOVASCULAR: Palpable 2+ radial pulses. ABDOMEN: Soft. Nondistended. Nontender. Rectum no drainage noted. MUSCULOSKELETAL: No clubbing or cyanosis. NEUROLOGIC: No focal or lateralizing signs. Cranial nerves II through XII grossly intact. PSYCH: Appropriate affect. Alert and oriented to person, place and time. SKIN: Well perfused. Good skin turgor. ASSESSMENT: 1. Supralevator perirectal abscess with sepsis 2. Obesity due to excess calories, BMI 31.3 3. Hypertensive heart disease 4. Failed outpatient antibiotic treatment 5. Gastroesophageal reflux disease 6. Hyperlipidemia. PLAN: -Continue antibiotics per infectious disease. -Awaiting culture results -Continue low fiber diet -Encourage patient to ambulate -Continue pain management -Continue Lovenox for DVT prophylaxis Physician Meeting Specialist note has been reviewed by physician. Signing provider agrees with the documented findings, assessment, and plan of care. Objective - Vital Signs Vital signs: Vital Signs Temp 98.0 F 08/02/23 07:39 Pulse 64 08/02/23 07:39 Resp 20 08/02/23 07:39 BP 115/68 08/02/23 07:39 Pulse Ox 96 08/02/23 07:39 FiO2 Intake & Output 08/01/23 08/02/23 08/02/23 18:59 06:59 18:59 Intake Total 950 900 Output Total 5 Balance 945 900 Intake: IV 950 Intake, IV Titration 900 Amount Sodium Chloride 0.9% 1, 900 000 ml @ 75 mls/hr IV . [id number] MANDI Rx#:[id number] Output: Estimated Blood Loss 5 Other: # Voids 2 - Labs CBC & Chem 7: 08/02/23 05:59 08/01/23 11:30 Labs: Abnormal Lab Results - Last 24 Hours (Table) 08/01/23 08/02/23 Range/Units 11:30 05:59 RBC 3.94 L (4.40-5.60) X 10*6/uL Hgb 12.4 L (13.0-17.0) g/dL Hct 36.1 L (39.6-50.0) % Neutrophils # 7.78 H (1.80-7.70) X 10*3/uL Lymphocytes # 0.69 L (0.90-5.00) X 10*3/uL Eosinophils # 0 L (0.04-0.35) X 10*3/uL Sodium 135 L (137-145) mmol/L AST 91 H (17-59) U/L ALT 273 H (4-49) U/L Microbiology - Last 24 Hours (Table) 08/01/23 15:50 Gram Stain - Preliminary Other - Other 07/30/23 17:00 Blood Culture - Preliminary Blood 07/30/23 16:55 Blood Culture - Preliminary Blood
--- NOTE | 2023-08-02 15:34 | P.PN ---
Subjective Progress Note Date: 08/02/23 No new complaints. Pt reports feeling much better s/p procedure/abscess drainage. Cx results pending. Gen: awake, alert HEENT: normocephalic, atraumatic, good hearing acuity, moist mucous membranes Resp: good air exchange, breathing comfortably with no accessory muscle use CVS: good distal perfusion x 4, GI: soft, NTTP, ND : no SPT, no CVAT, dela cruz catheter not present MSK: no pitting edema, no clubbing Neuro: non-focal, moving all extremities Psych: cooperative, euthymic mood Hospital Course: 67 year old M with PMH of CAD, GERD, HTN presents to the ED for rectal pain and fever. In the ED, he underwent extensive evaluation. T-max 101.2 Fahrenheit. CBC unremarkable. CMP showed sodium of 135, chloride 96, ALT 67. CRP 2.6. Influenza, RSV, COVID-[address] AP showed perianal abscess. 07/31 Patient was seen and examined. He continues to report rectal pain. No nausea or vomiting. No other complaints. Continued on Unasyn. ID consulted. CBC Hg 12.7. BMP Na 133, AST 332, ALT 467. 08/01 Patient was seen and examined. Tmax 101.5F over the past 24H. ID recommends I&D. Surgery planning for OR today. CMP shows Na 135, AST 91, ALT 273. Assessment/Plan: Perianal abscess: -Unasyn 3g IV Q8H. Cultures pending from OR -Morphine 4 mg IV Q4H PRN for pain. Zofran 4 mg IV Q8H PRN for N/V. Protonix 40 mg IV QD. -Blood cultures from 07/30 reviewed, NGTD -NS at 75 cc/hr. -Appreciate Gen Surgery recommendations CAD: ASA 81 mg PO QD. GERD: Protonix 40 mg IV QD. HTN: Amlodipine 5 mg PO QD. Metoprolol 50 mg PO BID. CODE STATUS: FULL CODE DVT Prophylaxis: GI Prophylaxis: Protonix IV Designated medical POA if patient is not able to make medical decisions for themselves: Objective - Vital Signs Vital signs: Vital Signs Temp 98.2 F 08/02/23 13:55 Pulse 61 08/02/23 13:55 Resp 20 08/02/23 13:55 BP 129/78 08/02/23 13:55 Pulse Ox 97 12/04/23 13:55 FiO2 Intake & Output 08/01/23 08/02/23 08/02/23 18:59 06:59 18:59 Intake Total 950 900 Output Total 5 Balance 945 900 Intake: IV 950 Intake, IV Titration 900 Amount Sodium Chloride 0.9% 1, 900 000 ml @ 75 mls/hr IV . [id number] MANDI Rx#:[id number] Output: Estimated Blood Loss 5 Other: # Voids 2 - Labs CBC & Chem 7: 08/02/23 05:59 08/01/23 11:30 Labs: Abnormal Lab Results - Last 24 Hours (Table) 08/02/23 Range/Units 05:59 RBC 3.94 L (4.40-5.60) X 10*6/uL Hgb 12.4 L (13.0-17.0) g/dL Hct 36.1 L (39.6-50.0) % Neutrophils # 7.78 H (1.80-7.70) X 10*3/uL Lymphocytes # 0.69 L (0.90-5.00) X 10*3/uL Eosinophils # 0 L (0.04-0.35) X 10*3/uL Microbiology - Last 24 Hours (Table) 08/01/23 15:50 Gram Stain - Preliminary Other - Other 07/30/23 17:00 Blood Culture - Preliminary Blood 07/30/23 16:55 Blood Culture - Preliminary Blood
[2023-08-02] MEDS: amLODIPine 5 MG TAB PO SCH (20:40)
[2023-08-03] MEDS: AMPICILLIN-SULBACTAM 3 GM in SODIUM CHLORIDE 0.9% 100 ML IVPB SCH ×4 (01:37→21:06)
[2023-08-03] MEDS: SODIUM CHLORIDE 0.9% 1,000 ML IV SCH ×2 (01:38→14:36)
[2023-08-03] MEDS: ACETAMINOPHEN TAB 500 MG TAB PO SCH ×4 (05:45→23:51)
[2023-08-03] MEDS: KETOROLAC 15 MG/ML 1 ML VIAL IVP SCH ×2 (05:46→12:46)
[2023-08-03 07:48] VITALS: RESP 18
[2023-08-03] MEDS: METOPROLOL TARTRATE 50 MG TAB PO SCH ×2 (08:48→21:07)
[2023-08-03] MEDS: ASPIRIN 81 MG PO SCH (08:48)
[2023-08-03] MEDS: PANTOPRAZOLE 40 MG/10 ML VIAL IV SCH (08:48)
[2023-08-03] MEDS: ENOXAPARIN 40 MG/0.4 ML SYRINGE SQ SCH (08:49)
[2023-08-03 10:53] LABS: Basophils # (A) 0.03 X 10*3/uL (0.00-0.10); Basophils % (A) 0.3 %; Eosinophils # (A) 0.03 X 10*3/uL (0.04-0.35); Eosinophils % (A) 0.3 %; HCT 34.1 % (39.6-50.0); HGB 11.7 g/dL (13.0-17.0); Lymphocytes # (A) 1.72 X 10*3/uL (0.90-5.00); Lymphocytes % (A) 19.2 %; MCH 31.2 pg (27.0-32.0); MCHC 34.3 g/dL (32.0-37.0); MCV 90.9 FL (80.0-97.0); Mean Platelet Volume 10.1 FL (9.5-12.2); Monocytes # (A) 0.56 X 10*3/uL (0.20-1.00); Monocytes % (A) 6.3 %; NRBC Per 100 WBC 0 X 10*3/uL (0.00-0.01); Neutrophils # (A) 6.57 X 10*3/uL (1.80-7.70); Neutrophils % (A) 73.5 %; Platelet Count 169 X 10*3/uL (140-440); RBC 3.75 X 10*6/uL (4.40-5.60); RDW 13.1 % (11.5-14.5); WBC 8.95 X 10*3/uL (4.50-10.00)
--- NOTE | 2023-08-03 12:47 | P.PN ---
Subjective Progress Note Date: 08/03/23 CHIEF COMPLAINT: Perirectal abscess HISTORY OF PRESENT ILLNESS: Patient postop day #2 status post transanal drainage of perirectal abscess. Patient does report some pain with bowel movement. He is still passing some blood with the movement. He has been up and ambulating. Afebrile. WBC 8.95 Hgb 11.7 platelets 169 culture growing gram-negative bacilli PHYSICAL EXAM: VITAL SIGNS: Reviewed GENERAL: Well-developed in no acute distress. HEENT: No sclera icterus. Extraocular movements grossly intact. Moist buccal mucosa. Head is atraumatic, normocephalic. Hears conversational speech. No nasal d rainage. NECK: Supple without lymphadenopathy. CHEST: Non-labored respirations and equal bilateral excursions. CARDIOVASCULAR: Palpable 2+ radial pulses. ABDOMEN: Soft. Nondistended. Nontender. Rectum no drainage noted. MUSCULOSKELETAL: No clubbing or cyanosis. NEUROLOGIC: No focal or lateralizing signs. Cranial nerves II through XII grossly intact. PSYCH: Appropriate affect. Alert and oriented to person, place and time. SKIN: Well perfused. Good skin turgor. ASSESSMENT: 1. Supralevator perirectal abscess with sepsis 2. Obesity due to excess calories, BMI 31.3 3. Hypertensive heart disease 4. Failed outpatient antibiotic treatment 5. Gastroesophageal reflux disease 6. Hyperlipidemia. PLAN: -Continue antibiotics per infectious disease. -Awaiting final culture results -Continue low fiber diet -Encourage patient to ambulate -Continue pain management -Continue Lovenox for DVT prophylaxis Physician Handle Maker note has been reviewed by physician. Signing provider agrees with the documented findings, assessment, and plan of care. Objective - Vital Signs Vital signs: Vital Signs Temp 97.9 F 08/03/23 07:34 Pulse 61 08/03/23 07:34 Resp 18 08/03/23 07:34 BP 121/79 08/03/23 07:34 Pulse Ox 95 08/03/23 07:34 FiO2 Intake & Output 08/02/23 08/03/23 08/03/23 18:59 06:59 18:59 Intake Total 1300 Balance 1300 Intake: Intake, IV Titration 900 Amount Sodium Chloride 0.9% 1, 900 000 ml @ 75 mls/hr IV . [id number] MANDI Rx#:[id number] Oral 400 Other: # Voids 4 # Bowel Movements 4 - Labs CBC & Chem 7: 08/03/23 06:38 08/01/23 11:30 Labs: Abnormal Lab Results - Last 24 Hours (Table) 08/03/23 Range/Units 06:38 RBC 3.75 L (4.40-5.60) X 10*6/uL Hgb 11.7 L (13.0-17.0) g/dL Hct 34.1 L (39.6-50.0) % Eosinophils # 0.03 L (0.04-0.35) X 10*3/uL Microbiology - Last 24 Hours (Table) 07/30/23 17:00 Blood Culture - Preliminary Blood 07/30/23 16:55 Blood Culture - Preliminary Blood 08/01/23 15:50 Gram Stain - Preliminary Other - Other Wound Culture - Preliminary Gram Neg Bacilli
[2023-08-03 12:50] LABS: BUN/Creat Ratio 20.83 Ratio (12.00-20.00); Blood Urea Nitrogen 12.5 mg/dL (9.0-27.0); Calcium 8.5 mg/dL (8.7-10.3); Carbon Dioxide 22.1 mmol/L (21.6-31.8); Chloride 106 mmol/L (96-109); Glucose 95 mg/dL (70-110); Sodium 142 mmol/L (135-145)
--- NOTE | 2023-08-03 13:56 | P.PN ---
Subjective Progress Note Date: 08/03/23 Hospital Course: 67 year old M with PMH of CAD, GERD, HTN presents to the ED for rectal pain and fever. In the ED, he underwent extensive evaluation.T-max 101.2 Fahrenheit. CBC unremarkable. CMP showed sodium of 135, chloride 96, ALT 67. CRP 2.6. Influenza, RSV, COVID-[address] AP showed perianal abscess. Patient admitted. ID and surgery consulted. Currently on IV Unasyn. Also has transaminitis. Underwent I&D. Subjective: Patient seen and examined at bedside. No acute events overnight. Having bowel movements. His rectal pain is almost subsided. Pertinent positives and negatives as discussed above, a complete review of systems was performed and all other systems are negative. Vitals Signs Reviewed. General: nontoxic, no distress, appears at stated age, obese Derm: warm, dry Head: atraumatic, normocephalic, symmetric Eyes: EOMI, no lid lag, anicteric sclera Mouth: no lip lesion, mucus membranes moist Cardiovascular: S1S2 reg, no murmur Lungs: CTA bilateral, no rhonchi, no rales , no accessory muscle use Abdominal: soft, nontender to palpation, no guarding, no appreciable organomegaly Ext: no gross muscle atrophy, no edema, no contractures Neuro: CN II-XI grossly intact, no focal neuro deficits Psych: Alert, oriented, appropriate affect Data Reviewed Today: Pertinent Labs: WBC 8.95, hemoglobin 11.7, sodium 142, creatinine 0.6, magnesium 2 Imaging: No new imaging Assessment and Plan: Perianal abscess: -Unasyn 3g IV Q8H. Cultures from October shows gram-negative bacilli, speciation pending -Morphine 4 mg IV Q4H PRN for pain. Monitor for respiratory depression. [place] 5 every 4 hours as needed, Tylenol 650 every 6 hours as needed - Zofran 4 mg IV Q8H PRN for N/V. Protonix 40 mg IV QD. -Blood cultures from 07/30 reviewed, NGTD -NS at 75 cc/hr. -Gen. surgery reviewed, continue low fiber diet CAD: ASA 81 mg PO QD. GERD: Protonix 40 mg IV QD. HTN: Amlodipine 5 mg PO QD. Metoprolol 50 mg PO BID. DVT ppx: Lovenox Code status: Full code Anticipated discharge place: Pending clinical course Anticipated discharge time: Pending clinical course Objective - Vital Signs Vital signs: Vital Signs Temp 98.0 F 08/03/23 13:49 Pulse 68 08/03/23 13:49 Resp 18 08/03/23 13:49 BP 116/64 08/03/23 13:49 Pulse Ox 94 L 08/03/23 13:49 FiO2 Intake & Output 08/02/23 08/03/23 08/03/23 18:59 06:59 18:59 Intake Total 1300 Balance 1300 Intake: Intake, IV Titration 900 Amount Sodium Chloride 0.9% 1, 900 000 ml @ 75 mls/hr IV . [id number] MANDI Rx#:[id number] Oral 400 Other: # Voids 4 # Bowel Movements 4 - Labs CBC & Chem 7: 08/03/23 06:38 08/03/23 06:38 Labs: Abnormal Lab Results - Last 24 Hours (Table) 08/03/23 08/03/23 Range/Units 06:38 06:38 RBC 3.75 L (4.40-5.60) X 10*6/uL Hgb 11.7 L (13.0-17.0) g/dL Hct 34.1 L (39.6-50.0) % Eosinophils # 0.03 L (0.04-0.35) X 10*3/uL Anion Gap 13.90 H (4.00-12.00) mmol/L BUN/Creatinine Ratio 20.83 H (12.00-20.00) Ratio Calcium 8.5 L (8.7-10.3) mg/dL Microbiology - Last 24 Hours (Table) 07/30/23 17:00 Blood Culture - Preliminary Blood 07/30/23 16:55 Blood Culture - Preliminary Blood 08/01/23 15:50 Gram Stain - Preliminary Other - Other Wound Culture - Preliminary Gram Neg Bacilli
--- NOTE | 2023-08-03 15:31 | P.PN ---
Subjective Progress Note Date: 08/02/23 Principal diagnosis: Reason for follow-up is perirectal abscess Patient is a 67-year-old male with a past medical history significant for coronary disease hypertension hyperlipidemia sleep apnea reflux patient presenting to the hospital for evaluation of fever and perirectal pain, patient did have CT of abdominal pelvis with evidence of remaining enhancing collection in the right perianal Region 3.4 X4.4 centimeter, patient did have Transanal drainage of perirectal abscess, 3 x 5 cm on 08/01/2023 On today's evaluation that is 08/02/2023 the patient remains to be afebrile, the patient is breathing comfortably on room air and no need for supplemental oxygen, the patient denies having any chest pain denies any cough or sputum production, patient denies any abdominal pain no nausea vomiting and the perirectal pain has decreased in intensity White count of 8.99, creatinine 0.67, fluid cultures pending Objective - Vital Signs Vital signs: Vital Signs Temp 98.2 F 08/02/23 13:55 Pulse 61 08/02/23 13:55 Resp 20 08/02/23 13:55 BP 129/78 08/02/23 13:55 Pulse Ox 97 08/02/23 13:55 FiO2 Intake & Output 08/02/23 08/02/23 08/03/23 06:59 18:59 06:59 Intake Total 900 1300 Balance 900 1300 Intake: Intake, IV Titration 900 900 Amount Sodium Chloride 0.9% 1, 900 900 000 ml @ 75 mls/hr IV . [id number] [facility] Rx#:[id number] Oral 400 Other: # Voids 2 4 # Bowel Movements 4 - Exam GENERAL DESCRIPTION: An elderly male lying in bed in no distress RESPIRATORY SYSTEM: Unlabored breathing , clear to auscultation anteriorly HEART: S1 S2 regular rate and rhythm , ABDOMEN: Soft , no tenderness EXTREMITIES: No edema feet - Labs CBC & Chem 7: 08/03/23 06:38 08/03/23 06:38 Labs: Abnormal Lab Results - Last 24 Hours (Table) 08/02/23 Range/Units 05:59 RBC 3.94 L (4.40-5.60) X 10*6/uL Hgb 12.4 L (13.0-17.0) g/dL Hct 36.1 L (39.6-50.0) % Neutrophils # 7.78 H (1.80-7.70) X 10*3/uL Lymphocytes # 0.69 L (0.90-5.00) X 10*3/uL Eosinophils # 0 L (0.04-0.35) X 10*3/uL Microbiology - Last 24 Hours (Table) 08/01/23 15:50 Gram Stain - Preliminary Other - Other 07/30/23 17:00 Blood Culture - Preliminary Blood 07/30/23 16:55 Blood Culture - Preliminary Blood Assessment and Plan (1) Perirectal abscess Current Visit: Yes Status: Acute Code(s): K61.1 - RECTAL ABSCESS SNOMED Code(s): 21782695 Plan: 1patient presented to hospital with fever in this patient who did have evidence of perianal abscess we will likely need to cover for the enteric gram-negative both aerobic and anaerobes 2-patient is status post Transanal drainage of perirectal abscess, 3 x 5 cm with a culture is currently pending 3-patient to continue with Unasyn 3 g every 6 hours while waiting for the cultures to finalize Dictation was produced using [employer] dictation software. please excuse any grammatical, word or spelling errors. Time with Patient: Less than 30
--- NOTE | 2023-08-03 15:32 | P.PN ---
Subjective Progress Note Date: 08/03/23 Principal diagnosis: Reason for follow-up is perirectal abscess Patient is a 67-year-old male with a past medical history significant for coronary disease hypertension hyperlipidemia sleep apnea reflux patient presenting to the hospital for evaluation of fever and perirectal pain, patient did have CT of abdominal pelvis with evidence of remaining enhancing collection in the right perianal Region 3.4 X4.4 centimeter, patient did have Transanal drainage of perirectal abscess, 3 x 5 cm on 08/01/2023 On today's evaluation that is 08/03/2023, the patient continues to be afebrile and is breathing comfortably on room air, and patient denies any shortness of breath, chest pain, no cough or sputum production, patient denies nausea/vomiting, perirectal pain has decreased in intensity has been complaining of diarrhea denies any blood or mucus in the stool White count of 8.95, creatinine 0.6, fluid cultures are currently growing gram- negative bacilli Objective - Vital Signs Vital signs: Vital Signs Temp 97.9 F 08/03/23 07:34 Pulse 61 08/03/23 07:34 Resp 18 08/03/23 07:34 BP 121/79 08/03/23 07:34 Pulse Ox 95 08/03/23 07:34 FiO2 Intake & Output 08/02/23 08/03/23 08/03/23 18:59 06:59 18:59 Intake Total 1300 Balance 1300 Intake: Intake, IV Titration 900 Amount Sodium Chloride 0.9% 1, 900 000 ml @ 75 mls/hr IV . [id number] [facility] Rx#:[id number] Oral 400 Other: # Voids 4 # Bowel Movements 4 - Exam GENERAL DESCRIPTION: An elderly male lying in bed in no distress RESPIRATORY SYSTEM: Unlabored breathing , clear to auscultation anteriorly HEART: S1 S2 regular rate and rhythm , ABDOMEN: Soft , no tenderness EXTREMITIES: No edema feet - Labs CBC & Chem 7: 08/03/23 06:38 08/03/23 06:38 Labs: Abnormal Lab Results - Last 24 Hours (Table) 08/03/23 Range/Units 06:38 RBC 3.75 L (4.40-5.60) X 10*6/uL Hgb 11.7 L (13.0-17.0) g/dL Hct 34.1 L (39.6-50.0) % Eosinophils # 0.03 L (0.04-0.35) X 10*3/uL Microbiology - Last 24 Hours (Table) 07/30/23 17:00 Blood Culture - Preliminary Blood 07/30/23 16:55 Blood Culture - Preliminary Blood 08/01/23 15:50 Gram Stain - Preliminary Other - Other Wound Culture - Preliminary Gram Neg Bacilli Assessment and Plan (1) Perirectal abscess Current Visit: Yes Status: Acute Code(s): K61.1 - RECTAL ABSCESS SNOMED Code(s): 74864297 Plan: 1patient presented to hospital with fever in this patient who did have evidence of perianal abscess we will likely need to cover for the enteric gram-negative both aerobic and anaerobes 2-patient is status post Transanal drainage of perirectal abscess, 3 x 5 cm with a culture is currently growing gram-negative bacilli 3-patient did have some clinical improvement and will continue with Unasyn 3 g every 6 hours while waiting for the cultures to finalize to determine discharge antibiotics Dictation was produced using [employer] dictation software. please excuse any grammatical, word or spelling errors. Time with Patient: Less than 30
[2023-08-03 20:16] LABS: Hepatitis A Antibody IgM Nonreactive; Hepatitis B Core IgM Nonreactive; Hepatitis B Surface Antigen Nonreactive; Hepatitis C IgG Antibody Nonreactive
[2023-08-03] MEDS: amLODIPine 5 MG TAB PO SCH (21:07)
[2023-08-04] MEDS: AMPICILLIN-SULBACTAM 3 GM in SODIUM CHLORIDE 0.9% 100 ML IVPB SCH ×3 (02:40→15:16)
[2023-08-04] MEDS: SODIUM CHLORIDE 0.9% 1,000 ML IV SCH (05:51)
[2023-08-04] MEDS: ACETAMINOPHEN TAB 500 MG TAB PO SCH ×2 (05:52→12:09)
[2023-08-04] MEDS: METOPROLOL TARTRATE 50 MG TAB PO SCH (08:02)
[2023-08-04] MEDS: ENOXAPARIN 40 MG/0.4 ML SYRINGE SQ SCH (08:02)
[2023-08-04] MEDS: ASPIRIN 81 MG PO SCH (08:02)
[2023-08-04] MEDS: PANTOPRAZOLE 40 MG/10 ML VIAL IV SCH (08:02)
--- NOTE | 2023-08-04 08:04 | US ---
EXAMINATION TYPE: US abdomen limited DATE OF EXAM: 08/04/2023 COMPARISON: CT CLINICAL INDICATION: Male, 67 years old with history of RUQ US; RUQ US, GB removed TECHNIQUE: Multiple sonographic images of the right upper quadrant are obtained. FINDINGS: EXAM MEASUREMENTS: Liver Length: 15.5 cm CBD: 0.4 cm Right Kidney: 10.5 x 5.2 x 4.8 cm [employer]PER[employer]OR [employer] NOTES: Pancreas: wnl, tail obscured by overlying bowel gas Liver: Visualized portions appeared wnl, right lobe visualized mostly intercostally Gallbladder: Surgically absent Evidence for sonographic Pollack's sign: No CBD: wnl Right Kidney: No evidence of hydro, possible 4mm calculus mid/lateral IMPRESSION: 1. Suspected nonobstructing right renal stone.
[2023-08-04 11:11] LABS: Basophils # (A) 0.1 k/uL (0-0.2); Basophils % (A) 1 %; Eosinophils # (A) 0.1 k/uL (0-0.7); Eosinophils % (A) 1 %; HCT 39.3 % (39.0-53.0); HGB 13.2 gm/dL (13.0-17.5); Lymphocytes # (A) 1.7 k/uL (1.0-4.8); Lymphocytes % (A) 26 %; MCH 31.5 pg (25.0-35.0); MCHC 33.7 g/dL (31.0-37.0); MCV 93.7 fL (80.0-100.0); Mean Platelet Volume 7.9; Monocytes # (A) 0.4 k/uL (0-1.0); Monocytes % (A) 6 %; Neutrophils # (A) 4.2 k/uL (1.3-7.7); Neutrophils % (A) 64 %; Platelet Count 213 k/uL (150-450); RBC 4.19 m/uL (4.30-5.90); RDW 12.9 % (11.5-15.5); WBC 6.6 k/uL (3.8-10.6)
--- NOTE | 2023-08-04 13:13 | P.DS ---
Providers Date of admission: 07/30/23 16:24 Expected date of discharge: 08/04/23 Attending physician: Sheldon Kim MD Consults: 07/30/23 16:24 Consult Physician Routine Consulting Provider: Kaley Bowling Consult Reason/Comments: abscess Do you want consulting provider notified?: Yes 07/31/23 08:17 Consult Physician Routine Consulting Provider: Sana Orellana Consult Reason/Comments: perianal abscess Do you want consulting provider notified?: Yes Primary care physician: [facility] Course: Discharge Diagnosis: Perianal abscess CAD GERD HTN Transaminitis Nonobstructing renal stone Hospital Course: 67 year old M with PMH of CAD, GERD, HTN presents to the ED for rectal pain and fever. In the ED, he underwent extensive evaluation.T-max 101.2 Fahrenheit. CBC unremarkable. CMP showed sodium of 135, chloride 96, ALT 67. CRP 2.6. Influenza, RSV, COVID-[address] AP showed perianal abscess. Patient admitted. ID and surgery consulted. Was on IV Unasyn. Also has transaminitis, improving. Right upper quadrant ultrasound did not show any liver pathology, surgically absent gallbladder, CBD within normal limits, nonobstructing right renal stone. Underwent I&D. Based on culture data, patient be discharged on oral ciprofloxacin and Flagyl. Patient seen and examined at bedside. Vital signs reviewed and stable. General: nontoxic, no distress, appears at stated age Derm: warm, dry Head: atraumatic, normocephalic, symmetric Eyes: EOMI, no lid lag, anicteric sclera Mouth: no lip lesion, mucus membranes moist Cardiovascular: S1S2 reg, no murmur Lungs: CTA bilateral, no rhonchi, no rales , no accessory muscle use Abdominal: soft, nontender to palpation, no guarding, no appreciable organomegaly Ext: no gross muscle atrophy, no edema, no contractures Neuro: CN II-XI grossly intact, no focal neuro deficits Psych: Alert, oriented, appropriate affect A total of 33 minutes of time were spent preparing this complex discharge summary. Patient was discharged on 08/04/23 at 13:09. Patient Condition at Discharge: Stable Plan - Discharge Summary Discharge Rx Participant: Yes New Discharge Prescriptions: New Ciprofloxacin HCl [Cipro] 500 mg PO Q12HR 10 Days #20 tab metroNIDAZOLE [Flagyl] 500 mg PO TID #30 tab Continue Fluticasone Nasal [place] [Flonase Nasal [place]] 2 spray EA NOSTRIL DAILY Metoprolol Tartrate [Lopressor] 50 mg PO BID Omeprazole [PriLOSEC] 40 mg PO DAILY PRN PRN Reason: GERD Aspirin EC [Ecotrin Low Dose] 81 mg PO DAILY amLODIPine [Norvasc] 5 mg PO HS Acetaminophen Tab [Tylenol] 500 mg PO Q6H PRN PRN Reason: Pain Atorvastatin [Lipitor] 20 mg PO DAILY Celecoxib [CeleBREX] 200 mg PO BID PRN PRN Reason: Pain Discharge Medication List Fluticasone Nasal [place] [Flonase Nasal [place]] 2 spray EA NOSTRIL DAILY 06/04/16 [History] Metoprolol Tartrate [Lopressor] 50 mg PO BID 06/04/16 [History] Omeprazole [PriLOSEC] 40 mg PO DAILY PRN 06/04/16 [History] Acetaminophen Tab [Tylenol] 500 mg PO Q6H PRN 07/30/23 [History] Aspirin EC [Ecotrin Low Dose] 81 mg PO DAILY 07/30/23 [History] Atorvastatin [Lipitor] 20 mg PO DAILY 07/30/23 [History] Celecoxib [CeleBREX] 200 mg PO BID PRN 07/30/23 [History] amLODIPine [Norvasc] 5 mg PO HS 07/30/23 [History] Ciprofloxacin HCl [Cipro] 500 mg PO Q12HR 10 Days #20 tab 08/04/23 [Rx] metroNIDAZOLE [Flagyl] 500 mg PO TID #30 tab 08/04/23 [Rx] Follow up Appointment(s)/Referral(s): Zeus Recinos DO [Primary Care Provider] - 1-2 days Sana Orellana MD [STAFF PHYSICIAN] - 1 Week Kaley Bowling MD [STAFF PHYSICIAN] - 1 Week Patient Instructions/Handouts: Abscess (ED) Activity/Diet/Wound Care/Special Instructions: Please see your PCP, ID, and general surgery. Discharge Disposition: HOME SELF-CARE
--- NOTE | 2023-08-04 13:14 | P.PN ---
Subjective Progress Note Date: 08/04/23 CHIEF COMPLAINT: Perirectal abscess HISTORY OF PRESENT ILLNESS: Patient postop day #3 status post transanal drainage of perirectal abscess. Patient passed a small amount of blood with flatus this morning. He did have a bowel movement yesterday. His pain is improving. He denies any nausea or vomiting. Denies any abdominal pain. Afebrile. hepatitis panel negative. Labs for today pending. Culture result growing E. coli. Abdominal US suspected nonobstructing right renal stone. Gallbladder surgically absent. PHYSICAL EXAM: VITAL SIGNS: Reviewed GENERAL: Well-developed in no acute distress. HEENT: No sclera icterus. Extraocular movements grossly intact. Moist buccal mucosa. Head is atraumatic, normocephalic. Hears conversational speech. No nasal drainage. NECK: Supple without lymphadenopathy. CHEST: Non-labored respirations and equal bilateral excursions. CARDIOVASCULAR: Palpable 2+ radial pulses. ABDOMEN: Soft. Nondistended. Nontender. Rectum no drainage noted. MUSCULOSKELETAL: No clubbing or cyanosis. NEUROLOGIC: No focal or lateralizing signs. Cranial nerves II through XII grossly intact. PSYCH: Appropriate affect. Alert and oriented to person, place and time. SKIN: Well perfused. Good skin turgor. ASSESSMENT: 1. Supralevator perirectal abscess with sepsis 2. Obesity due to excess calories, BMI 31.3 3. Hypertensive heart disease 4. Failed outpatient antibiotic treatment 5. Gastroesophageal reflux disease 6. Hyperlipidemia. PLAN: -Patient can be discharged from surgical standpoint when medically cleared -Discharge antibiotics per infectious disease -Continue low fiber diet -Encourage patient to ambulate -Continue pain management with Tylenol -Continue Lovenox for DVT prophylaxis Physician Elevator [employer] note has been reviewed by physician. Signing provider agrees with the documented findings, assessment, and plan of care. Objective - Vital Signs Vital signs: Vital Signs Temp 98.3 F 08/04/23 08:00 Pulse 68 08/04/23 08:00 Resp 18 08/04/23 08:00 BP 132/82 08/04/23 08:00 Pulse Ox 96 08/04/23 08:00 FiO2 Intake & Output 08/03/23 08/04/23 08/04/23 18:59 06:59 18:59 Output Total 1 Balance -1 Output: Urine 1 Other: # Voids 2 - Labs CBC & Chem 7: 08/04/23 10:19 08/03/23 06:38 Labs: Abnormal Lab Results - Last 24 Hours (Table) 08/03/23 08/03/23 Range/Units 06:38 06:38 RBC 3.75 L (4.40-5.60) X 10*6/uL Hgb 11.7 L (13.0-17.0) g/dL Hct 34.1 L (39.6-50.0) % Eosinophils # 0.03 L (0.04-0.35) X 10*3/uL Anion Gap 13.90 H (4.00-12.00) mmol/L BUN/Creatinine Ratio 20.83 H (12.00-20.00) Ratio Calcium 8.5 L (8.7-10.3) mg/dL Microbiology - Last 24 Hours (Table) 08/01/23 15:50 Gram Stain - Final Other - Other Wound Culture - Final Escherichia coli Escherichia coli#2 07/30/23 17:00 Blood Culture - Preliminary Blood 07/30/23 16:55 Blood Culture - Preliminary Blood
[2023-08-04 15:31] LABS: ALT 180 U/L (10-49); AST 63 U/L (14-35); Albumin 3.9 g/dL (3.8-4.9); Albumin/Globulin Ratio 1.56 Ratio (1.60-3.17); Alkaline Phosphatase 110 U/L (41-126); Blood Urea Nitrogen 9.6 mg/dL (9.0-27.0); Calcium 9.6 mg/dL (8.7-10.3); Carbon Dioxide 24.6 mmol/L (21.6-31.8); Chloride 102 mmol/L (96-109); Globulin 2.5 g/dL (1.6-3.3); Glucose 92 mg/dL (70-110); Sodium 139 mmol/L (135-145); Total Bilirubin 0.4 mg/dL (0.3-1.2); Total Protein 6.4 g/dL (6.2-8.2)
[2023-08-04 15:52] VITALS: BP 119/78; PULSE 60; TEMP 97.8
--- NOTE | 2023-08-04 16:53 | P.PN ---
Subjective Progress Note Date: 08/04/23 Principal diagnosis: Reason for follow-up is perirectal abscess Patient is a 67-year-old male with a past medical history significant for coronary disease hypertension hyperlipidemia sleep apnea reflux patient presenting to the hospital for evaluation of fever and perirectal pain, patient did have CT of abdominal pelvis with evidence of remaining enhancing collection in the right perianal Region 3.4 X4.4 centimeter, patient did have Transanal drainage of perirectal abscess, 3 x 5 cm on 08/01/2023 On today's evaluation that is 08/04/2023 the patient remains to be afebrile, the patient is breathing comfortably on room air and no need for supplemental oxygen, the patient denies having any chest pain or cough and no sputum production, patient denies nausea vomiting or abdominal pain, the patient perirectal discomfort has decreased intensity and diarrhea has slowed down White count of 6.6, creatinine 0.6, fluid cultures are currently growing 2 different strains of E. coli one is sensitive other is resistant to Unasyn Objective - Vital Signs Vital signs: Vital Signs Temp 98.3 F 08/04/23 08:00 Pulse 68 08/04/23 08:00 Resp 18 08/04/23 08:00 BP 132/82 08/04/23 08:00 Pulse Ox 96 08/04/23 08:00 FiO2 Intake & Output 08/03/23 08/04/23 08/04/23 18:59 06:59 18:59 Output Total 1 Balance -1 Output: Urine 1 Other: # Voids 2 - Exam GENERAL DESCRIPTION: An elderly male lying in bed in no distress RESPIRATORY SYSTEM: Unlabored breathing , clear to auscultation anteriorly HEART: S1 S2 regular rate and rhythm , ABDOMEN: Soft , no tenderness EXTREMITIES: No edema feet - Labs CBC & Chem 7: 08/04/23 10:19 08/04/23 10:19 Labs: Abnormal Lab Results - Last 24 Hours (Table) 08/03/23 08/04/23 Range/Units 06:38 10:19 RBC 4.19 L (4.30-5.90) m/uL Anion Gap 13.90 H (4.00-12.00) mmol/L BUN/Creatinine Ratio 20.83 H (12.00-20.00) Ratio Calcium 8.5 L (8.7-10.3) mg/dL Microbiology - Last 24 Hours (Table) 08/01/23 15:50 Gram Stain - Final Other - Other Wound Culture - Final Escherichia coli Escherichia coli#2 Assessment and Plan (1) Perirectal abscess Status: Acute Code(s): K61.1 - RECTAL ABSCESS SNOMED Code(s): 57329116 Plan: 1patient presented to hospital with fever in this patient who did have evidence of perianal abscess we will likely need to cover for the enteric gram-negative both aerobic and anaerobes 2-patient is status post Transanal drainage of perirectal abscess, 3 x 5 cm with a culture grew gram-negative bacilli 2 one of the middle resistant to Unasyn both of them are sensitive to Cipro 3-patient has shown clinical improvement, patient will finish therapy with oral Cipro and Flagyl 10 days and a close patient follow-up discussed with admitting team working on discharge Dictation was produced using [employer] dictation software. please excuse any grammatical, word or spelling errors. Time with Patient: Less than 30
== END 2023-08-04 15:56 | disposition home or self-care (01) | DRG 395 ==
LOC: EC 10:57 → 4SSUR 16:24
PROVIDERS: ADMIT Internal Medicine; ATTEND Internal Medicine
PROC: 0D9P7ZX Drainage of Rectum, Via Natural or Artificial Opening, Diagnostic (ICD-10-PCS; principal; 2023-08-01 15:30)
DX: K61.5 Supralevator abscess (principal); K61.2 Anorectal abscess; I11.9 Hypertensive heart disease without heart failure; E66.09 Other obesity due to excess calories; Z68.31 Body mass index [BMI] 31.0-31.9, adult; E78.5 Hyperlipidemia, unspecified; I25.10 Atherosclerotic heart disease of native coronary artery without angina pectoris; K21.9 Gastro-esophageal reflux disease without esophagitis; K64.1 Second degree hemorrhoids; N20.0 Calculus of kidney; G47.30 Sleep apnea, unspecified; R74.01 Elevation of levels of liver transaminase levels; Z79.82 Long term (current) use of aspirin; Z79.899 Other long term (current) drug therapy; Z88.2 Allergy status to sulfonamides
CPT/HCPCS: 36415; 72193; 74177; 76705; 80048; 80053; 80074; 83735; 84100; 85025; 85027; 86140; 87040; 87070; 87075; 87077; 87186; 87205; 87636; 96361; 96365; 96366; 96368; 96375; 99285

== ENCOUNTER → 2023-08-27 | Outpatient (CLI) | payer MEDICARE ==
[2023-08-27 12:10] LABS: Basophils # (A) 0.1 k/uL (0-0.2); Basophils % (A) 1 %; Eosinophils # (A) 0.2 k/uL (0-0.7); Eosinophils % (A) 3 %; HCT 41.5 % (39.0-53.0); HGB 14.2 gm/dL (13.0-17.5); Lymphocytes # (A) 1.8 k/uL (1.0-4.8); Lymphocytes % (A) 30 %; MCH 31.9 pg (25.0-35.0); MCHC 34.2 g/dL (31.0-37.0); MCV 93.3 fL (80.0-100.0); Mean Platelet Volume 7.4; Monocytes # (A) 0.4 k/uL (0-1.0); Monocytes % (A) 7 %; Neutrophils # (A) 3.6 k/uL (1.3-7.7); Neutrophils % (A) 58 %; Platelet Count 242 k/uL (150-450); RBC 4.45 m/uL (4.30-5.90); RDW 13.1 % (11.5-15.5); WBC 6.2 k/uL (3.8-10.6)
[2023-08-27 12:41] LABS: African American GFR (CKD) >90 (>60 ml/min/1.73 sqM); Anion Gap 12 mmol/L; Blood Urea Nitrogen 11 mg/dL (9-20); Calcium 9.9 mg/dL (8.4-10.2); Carbon Dioxide 26 mmol/L (22-30); Chloride 102 mmol/L (98-107); Glucose 97 mg/dL (74-99); Non-African American GFR(CKD) >90 (>60 ml/min/1.73 sqM); Potassium 4.3 mmol/L (3.5-5.1); Sodium 140 mmol/L (137-145)
--- NOTE | 2023-08-27 15:49 | CT ---
CT pelvis with contrast. HISTORY: ischiorectal abscess. COMPARISON: 08/01/2023. TECHNIQUE: Multiple axial images are obtained to the pelvis finding uneventful menstruation nonionic IV contrast and oral contrast. FINDINGS: There is no pelvic or rectal abscess or abnormal fluid collection. The prostate is mildly prominent. There is no pelvic adenopathy. The bowel loops are normal in caliber and there is no dilatation or obstruction. Urinary bladder is unremarkable. No focal osseous lesions are seen. IMPRESSION: Mild prosthetic hypertrophy with no other significant abnormality seen.
== END | disposition home or self-care (01) ==
LOC: RADCTMAIN 11:43
PROVIDERS: ATTEND Surgery Plastic and Reconstructive Surgery
DX: K61.39 Other ischiorectal abscess (principal); A41.9 Sepsis, unspecified organism; N40.1 Benign prostatic hyperplasia with lower urinary tract symptoms
CPT/HCPCS: 80048; 85025; 72193; 36415; Q9967

== ENCOUNTER 2023-10-20 09:41 | Day surgery (SDC) | payer MEDICARE ==
--- NOTE | 2023-10-20 09:26 | P.GSHP ---
History of Present Illness H&P Date: 10/20/23 CHIEF COMPLAINT: Colon screen HISTORY OF PRESENT ILLNESS: The patient is a 67-year-old male who presents for colon screen. Lower endoscopy was offered for further evaluation and management. PAST MEDICAL HISTORY: Please see list. PAST SURGICAL HISTORY: Please see list. MEDICATIONS: Please see list. ALLERGIES: Please see list. SOCIAL HISTORY: No illicit drug use FAMILY HISTORY: No reports of Crohn disease or ulcerative colitis. REVIEW OF ORGAN SYSTEMS: CONSTITUTIONAL: No reports of fevers or chills. PHYSICAL EXAM: VITAL SIGNS: Stable GENERAL: Well-developed pleasant in no acute distress. HEENT: No scleral icterus. Extraocular movements grossly intact. Moist buccal mucosa. NECK: Supple without lymphadenopathy. CHEST: Unlabored respirations. Equal bilateral excursions. CARDIOVASCULAR: Regular rate and rhythm. Distal 2+ pulses. ABDOMEN: Soft, nontender, nondistended. MUSCULOSKELETAL: No clubbing, cyanosis, or edema. ASSESSMENT: 1. Colon screen. PLAN: 1. Recommend proceeding with a lower endoscopy Past Medical History Past Medical History: Coronary Artery Disease (CAD), GERD/Reflux, Hyperlipidemia, Hypertension, Sleep Apnea/CPAP/BIPAP Additional Past Medical History / Comment(s): cpap used, History of Any Multi-Drug Resistant Organisms: None Reported Past Surgical History: Appendectomy, Orthopedic Surgery Additional Past Surgical History / Comment(s): R & L shoulder surgery in the past. Pain injections to lower back. rt knee arthroscopy, rfa to back 2 weeks ago, abcess drained on rectum Past Anesthesia/Blood Transfusion Reactions: No Reported Reaction Smoking Status: Never smoker - Past Family History Sister(s) Family Medical History: Cancer Additional Family Medical History / Comment(s): Thyroid Mother Family Medical History: No Reported History Father Family Medical History: Cancer Additional Family Medical History / Comment(s): Prostate Medications and Allergies Home Medications Medication Instructions Recorded Confirmed Type Fluticasone Nasal [place] [Flonase 2 spray EA NOSTRIL DAILY 06/04/16 10/15/23 History Nasal [place]] Metoprolol Tartrate [Lopressor] 50 mg PO BID 06/04/16 10/15/23 History Omeprazole [PriLOSEC] 40 mg PO DAILY PRN 06/04/16 10/15/23 History Acetaminophen Tab [Tylenol] 500 mg PO Q6H PRN 07/30/23 10/15/23 History Aspirin EC [Ecotrin Low Dose] 81 mg PO DAILY 07/30/23 10/15/23 History Atorvastatin [Lipitor] 20 mg PO DAILY 07/30/23 10/15/23 History Celecoxib [CeleBREX] 200 mg PO BID PRN 07/30/23 10/15/23 History amLODIPine [Norvasc] 5 mg PO HS 07/30/23 10/15/23 History Allergies Allergy/AdvReac Type Severity Reaction Status Date / Time sulfamethoxazole Allergy Rash/Hives Verified 10/15/23 13:32 [From Sulfamethoxazole-Trimethoprim] trimethoprim Allergy Rash/Hives Verified 10/15/23 13:32 [From Sulfamethoxazole-Trimethoprim]
[~2023-10-20 09:41] MED LIST: LIDOCAINE 1% (10MG/ML) FOR IV START INTRADERMA PRN
[2023-10-20] MEDS: LACTATED RINGERS 1,000 ML IV SCH (10:27)
[2023-10-20 10:34] VITALS: TEMP 97
[2023-10-20] MEDS ORDERED: PROPOFOL 10 MG/ML 20 ML VIAL IV ONE (11:29)
[2023-10-20 12:36] VITALS: BP 103/72; PULSE 61; RESP 20
--- NOTE | 2023-10-20 13:06 | P.PCN ---
Date of Procedure: 10/20/23 Description of Procedure: PREOPERATIVE DIAGNOSIS: Colonoscopy screening POSTOPERATIVE DIAGNOSIS: Tubular adenoma transverse colon Sigmoid diverticulosis Internal hemorrhoids, grade 2 OPERATION: Colonoscopy to the ileocecal valve and appendiceal orifice, cecum Colonoscopy with cold forceps biopsy SURGEON: Kaley Bowling MD. ANESTHESIA: MAC. INDICATIONS: The patient is an 67-year-old male who presents for colonoscopy screening. Last colonoscopy 15 years ago. Benefits and risks were described and informed consent was obtained. DESCRIPTION OF PROCEDURE: The patient had undergone a lightly prep. The patient had been brought into the operating room and laid in the left lateral decubitus position. After adequate intravenous sedation, the rectum was examined with 2% lidocaine jelly. The prostate was unremarkable. External hemorrhoids were encountered. The rectal tone was within normal limits. No lesions were palpated in the rectal vault. An Olympus colonoscope was advanced until the cecum, ileocecal valve and appendiceal orifice were clearly viewed. The prep was good. Sigmoid di verticulosis was encountered. Colonic polyps were found and removed. No evidence of focal colitis was found. Retroflexion of the scope demonstrated grade 2 internal hemorrhoids without active bleeding or inflammation. The colon was desufflated. The patient had tolerated the procedure well. Withdrawal time was over 6 minutes. FINDINGS: Aronchick preparation quality scale 1+ (1-5) Internal hemorrhoids, grade 2 with recent inflammation and bleeding External hemorrhoids, grade 1. No arteriovenous malformations. Sigmoid diverticulosis, moderate to severe Removal of 1 polyps: - Cold forceps biopsy at transverse colon, 4 mm adenoma No focal colitis. RECOMMENDATIONS: Repeat colonoscopy 3 years, 2026 Plan - Discharge Summary Discharge Rx Participant: No New Discharge Prescriptions: New metroNIDAZOLE [Flagyl] 500 mg PO TID #30 tab Continue Fluticasone Nasal [place] [Flonase Nasal [place]] 2 spray EA NOSTRIL DAILY Metoprolol Tartrate [Lopressor] 50 mg PO BID Omeprazole [PriLOSEC] 40 mg PO DAILY PRN PRN Reason: GERD Aspirin EC [Ecotrin Low Dose] 81 mg PO DAILY amLODIPine [Norvasc] 5 mg PO HS Acetaminophen Tab [Tylenol] 500 mg PO Q6H PRN PRN Reason: Pain Atorvastatin [Lipitor] 20 mg PO DAILY Celecoxib [CeleBREX] 200 mg PO BID PRN PRN Reason: Pain Discharge Medication List Fluticasone Nasal [place] [Flonase Nasal [place]] 2 spray EA NOSTRIL DAILY 06/04/16 [History] Metoprolol Tartrate [Lopressor] 50 mg PO BID 06/04/16 [History] Omeprazole [PriLOSEC] 40 mg PO DAILY PRN 06/04/16 [History] Acetaminophen Tab [Tylenol] 500 mg PO Q6H PRN 07/30/23 [History] Aspirin EC [Ecotrin Low Dose] 81 mg PO DAILY 07/30/23 [History] Atorvastatin [Lipitor] 20 mg PO DAILY 07/30/23 [History] Celecoxib [CeleBREX] 200 mg PO BID PRN 07/30/23 [History] amLODIPine [Norvasc] 5 mg PO HS 07/30/23 [History] metroNIDAZOLE [Flagyl] 500 mg PO TID #30 tab 10/20/23 [Rx] Follow up Appointment(s)/Referral(s): Kaley Bowling MD [STAFF PHYSICIAN] - As Needed Patient Instructions/Handouts: *Surgery [facility] - (Anesthesia) Discharge Instructions Outpatient Surgery, Diverticulosis (ED), Diverticulosis Diet (GEN) Activity/Diet/Wound Care/Special Instructions: Repeat colonoscopy 3 years, 2026 Discharge Disposition: HOME SELF-CARE
== END 2023-10-20 12:46 | disposition home or self-care (01) ==
LOC: ORWHC2ENDO 09:41
PROVIDERS: ATTEND Surgery Plastic and Reconstructive Surgery
DX: Z12.11 Encounter for screening for malignant neoplasm of colon (principal); K63.5 Polyp of colon; K57.30 Diverticulosis of large intestine without perforation or abscess without bleeding; K64.1 Second degree hemorrhoids; K64.4 Residual hemorrhoidal skin tags; Z79.899 Other long term (current) drug therapy; Z79.82 Long term (current) use of aspirin; I25.10 Atherosclerotic heart disease of native coronary artery without angina pectoris; K21.9 Gastro-esophageal reflux disease without esophagitis; E78.5 Hyperlipidemia, unspecified; I10 Essential (primary) hypertension; G47.33 Obstructive sleep apnea (adult) (pediatric); Z90.49 Acquired absence of other specified parts of digestive tract
CPT/HCPCS: 88305; 45380; J2704; 45385

== ENCOUNTER → 2025-03-22 | Outpatient (CLI) | payer MEDICARE ==
--- NOTE | 2025-03-22 09:52 | US ---
EXAMINATION TYPE: US abdomen comp/pelvis limited DATE OF EXAM: 03/22/2025 COMPARISON: 08/04/2023 CLINICAL INDICATION: Male, 69 years old with history of R10.9 LEFT FLANK PAIN T18.9XXA; Abdominal gordy n TECHNIQUE: Grayscale color Doppler imaging of the abdomen and pelvis. FINDINGS: EXAM MEASUREMENTS: Liver Length: 15.3 Gallbladder: Surgically absent CBD: 0.3 cm Spleen: 10.8cm Right Kidney: 10.8 x 5.7 x 5.8cm Left Kidney: 11.2 x 6.2 x 5.7cm Pancreas: portions visualized wnl, tail obscured by bowel gas Liver: Mildly increased echogenicity. No focal lesions seen. Gallbladder: Surgically absent CBD: wnl Spleen: wnl Right Kidney: No hydronephrosis or masses seen Left Kidney: No hydronephrosis or masses seen Upper IVC: wnl Abd Aorta: Proximal portion appears ectatic at 2.6 cm. Bladder: wnl Bilateral Jets Seen Yes [employer]er notes: Exam limited by overlying bowel gas and body habitus. IMPRESSION: 1. Suspected mild fatty infiltration of the liver. 2. Status post cholecystectomy. No biliary ductal dilatation. 3. No gross abnormality of the bladder by ultrasound. [facility], , 03/22/2025 9:50 AM
== END | disposition home or self-care (01) ==
LOC: RADUSWWP 07:49
PROVIDERS: ATTEND Family Medicine
DX: N20.2 Calculus of kidney with calculus of ureter (principal); N41.1 Chronic prostatitis; Z90.49 Acquired absence of other specified parts of digestive tract
CPT/HCPCS: 76700; 76857